=== PATIENT | female | born 1980 | race Hispanic/Latino ===

== ENCOUNTER 2019-12-20 11:09 | Inpatient (IN) | payer SELFPAY ==
[2019-12-20 11:41] LABS: Absolute Lymphocytes (CBC) 1.9 K/uL (0.7-4.9); Basophils % 0.7 % (0-1.3); Hematocrit 34.6 % (36.0-45.0); Lymphocytes % 22.6 % (15.3-44.8); MPV 10.5 fL (7.6-11.3); RBC Red Blood Cell Count 3.93 M/uL (3.86-4.86)
[2019-12-20 11:42] LABS: Protime INR 0.84
--- NOTE | 2019-12-20 11:55 | RAD REPORT ---
EXAM DESCRIPTION: CT - Head Brain Wo Cont - 12/20/2019 11:39 am CLINICAL HISTORY: Headache COMPARISON: None. TECHNIQUE: Computed axial tomography of the head was obtained. IV contrast was not requested. All CT scans are performed using dose optimization technique as appropriate and may include automated exposure control or mA/KV adjustment according to patient size. FINDINGS: An intracranial bleed is not seen . The ventricles are normal in caliber. No extra-axial fluid collection is noted. Fluid within the sinuses/ mastoids is not seen. IMPRESSION: No acute intracranial abnormality is seen. If patient's symptoms persist MRI of the bra in would be recommended.
[2019-12-20 11:58] LABS: ALT/SGPT 14 U/L (12-78); AST/SGOT 16 U/L (15-37); Albumin 1.5 g/dL (3.4-5.0); Alkaline Phosphatase 102 U/L (45-117); BUN Blood Urea Nitrogen 17 mg/dL (7-18); Bicarbonate 27 mmol/L (21-32); Bilirubin Direct < 0.1 mg/dL (0-0.2); Bilirubin Total 0.2 mg/dL (0.2-1.0); Glucose Level 227 mg/dL (74-106); Magnesium 2.2 mg/dL (1.8-2.4); NT PRO-BNP 4006 pg/mL (<125); Potassium 4.6 mmol/L (3.5-5.1); Protein, Total 6.1 g/dL (6.4-8.2); Sodium Level 137 mmol/L (136-145); Troponin (Emerg Dept Use Only) 0.02 ng/mL (0.0-0.045)
--- NOTE | 2019-12-20 12:21 | ER ---
Nurse's Notes [facility] Name: Garima Shea Age: 39 yrs Sex: Female : 1980 Arrival Date: 12/20/2019 Time: 11:11 Bed 2 Private MD: Diagnosis: Hypertensive heart disease with heart failure;Unspecified combined systolic (congestive) and diastolic (congestive) heart failure;Sanders's palsy Presentation: 12/19 11:15 Initial Sepsis Screen: Does the patient have a suspected source of infection? No. rb1 Patient's initial sepsis screen is negative. 11:18 Chief complaint: Patient states: Facial droop, HAIDER, and HTN since Thursday. Bilateral ll1 leg swelling noted, Reports dyspnea at times. No fever or cough. Sent by PCP for further eval. Coronavirus screen: Client denies travel out of the [place] in the last 14 days. At this time, the client does not indicate any symptoms associated with coronavirus-19. Ebola Screen: Patient denies travel to an Ebola-affected area in the 21 days before illness onset. Initial Sepsis Screen: Does the patient meet any 2 criteria? HR > 90 bpm. Risk Assessment: Do you want to hurt yourself or someone else? Patient reports no desire to harm self or others. Onset of symptoms was December 24, 2019. 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 - Social history:: Smoking status: Patient denies any tobacco usage or history of. Screenin:34 Abuse screen: Denies threats or abuse. Nutritional screening: No deficits noted. tw2 Tuberculosis screening: No symptoms or risk factors identified. Fall Risk None identified. Assessment: 11:15 General: Appears in no apparent distress. comfortable, Behavior is calm, cooperative. rb1 General: Pt. reports that she went to see her doctor last Thursday and was put on Hydralazine for her blood pressure, but the medicine made her feel funny so she quit taking it.. Pain: Denies pain. Neuro: Level of Consciousness is awake, alert, obeys commands, Oriented to person, place, time, situation, Reports dizziness, headache weakness since x 1 week. 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 Gait is steady, Speech is normal, Facial droop on left, Pt. reports that she has had the left sided facial droop since last Thursday.. Pupils are PERRLA. Cardiovascular: Capillary refill < 3 seconds Patient's skin is warm and dry. Respiratory: Airway is patent Respiratory effort is even, unlabored, Respiratory pattern is regular, symmetrical, Denies cough, shortness of breath. GI: No signs and/or symptoms were reported involving the gastrointestinal system. : No signs and/or symptoms were reported regarding the genitourinary system. Musculoskeletal: Swelling present in right leg and left leg Swelling in bilateral legs started two weeks ago. 12:15 Reassessment: Patient appears in no apparent distress at this time. No changes from rb1 previously documented assessment. 12:53 Reassessment: Dr. Florentino Holt at the pt bedside. Received verbal order to hold the rb1 Lasix at this time and reassess in an hour. 100% read back. 13:15 Reassessment: Patient appears in no apparent distress at this time. Patient and/or rb1 family updated on plan of care and expected duration. Pain level reassessed. Patient is alert, oriented x 3, equal unlabored respirations, skin warm/dry/pink. Patient denies pain at this time. 14:45 Reassessment: pt transported to MRI at this time. tw2 15:14 Reassessment: Patient appears in no apparent distress at this time. No changes from tw2 previously documented assessment. Patient and/or family updated on plan of care and expected duration. Pain level reassessed. Patient is alert, oriented x 3, equal unlabored respirations, skin warm/dry/pink. pt back from MRI at this time. NAD. 16:09 Reassessment: Unable to give report at this time, was told the room has not been rb1 assigned yet. 16:11 Reassessment: Patient appears in no apparent distress at this time. Patient and/or rb1 family updated on plan of care and expected duration. Pain level reassessed. Patient is alert, oriented x 3, equal unlabored respirations, skin warm/dry/pink. 16:35 Reassessment: Gave report to ISABEL Grant. Information from the [facility] was given. All rb1 questions asked and answered. 17:10 Reassessment: Patient appears in no apparent distress at this time. No changes from rb1 previously documented assessment. Vital Signs: 11:18 BP 210 / 113; Pulse 101; Resp 18; Temp 98.0; Pulse Ox 100% ; Pain 6/10; ll1 11:34 BP 197 / 98; Pulse 97; Resp 17; Pulse Ox 100% on R/A; tw2 11:40 Weight 58.51 kg; Height 5 ft. 2 in. (157.48 cm); rb1 12:15 BP 200 / 112; Pulse 106; Resp 11; Pulse Ox 100% ; rb1 12:41 BP 166 / 89; Pulse 104; Resp 13; Pulse Ox 100% ; rb1 12:54 BP 154 / 81; Pulse 103; Resp 12; Pulse Ox 100% on R/A; rb1 13:15 BP 130 / 89; Pulse 109; Resp 16; Pulse Ox 100% on R/A; tw2 14:15 BP 138 / 72; Pulse 104; Resp 13; Pulse Ox 100% ; rb1 15:23 BP 148 / 77; Pulse 110; Resp 16; Pulse Ox 100% on R/A; tw2 16:10 BP 141 / 74; Pulse 102; Resp 17; Temp 98.2; Pulse Ox 99% ; Pain 0/10; rb1 17:00 BP 143 / 76; Pulse 96; Resp 16; Pulse Ox 100% ; Pain 0/10; rb1 11:40 Body Mass Index 23.59 (58.51 kg, 157.48 cm) rb1 NIH Stroke Scale Scores: 11:40 NIHSS Score: 2 cp ED Course: 11:11 Patient arrived in ED. ag5 11:11 Placed in gown. Bed in low position. Call light in reach. quality assurance monitor final on. Pulse ox tw2 on. NIBP on. 11:13 Tami Cole, ISABEL is Primary Nurse. rb1 11:14 Jj Gonzalez PA is PHCP. cp 11:14 Jj Gleason MD is Attending Physician. cp 11:20 Triage completed. ll1 11:21 Arm band placed on Patient placed in an exam room, on a stretcher. ll1 11:30 Inserted saline lock: 20 gauge in left antecubital area, using aseptic technique. Blood rb1 collected. 11:40 CT Head Brain wo Cont In Process Unspecified. EDMS 12:06 XRAY Chest (1 view) In Process Unspecified. EDMS 12:19 Florentino Holt MD is Hospitalizing Provider. cp 17:10 No provider procedures requiring assistance completed. Patient admitted, IV remains in rb1 place. Administered Medications: 12:19 Drug: HydrALAZINE 50 mg Route: PO; rb1 12:45 Follow up: Response: No adverse reaction; Blood pressure is lowered rb1 12:19 Drug: hydrALAZINE 10 mg Route: IV; Rate: calculated rate; Site: left antecubital; rb1 12:45 Follow up: Response: No adverse reaction rb1 12:45 Follow up: IV Status: Completed infusion rb1 12:19 Drug: Aspirin Chewable Tablet 324 mg Route: PO; rb1 13:00 Follow up: Response: No adverse reaction rb1 16:02 Not Given (BP decreased; Received verbal order to hold and reassess to see if BP rb1 increases. He doesn't want to drop her pressure too quickly): Lasix 20 mg IVP once Outcome: 12:20 Decision to Hospitalize by Provider. cp 17:10 Admitted to Med/surg accompanied by [facility], via stretcher, room 205, with chart, Report rb1 called to ISABEL Grant 17:10 Condition: stable 17:10 Instructed on the need for admit. 17:25 Patient left the ED. rb1 NIH Stroke Scale - NIH Stroke Score Date: 12/20/2019 Time: 11:40 Total Score = 2 1a. Level of Consciousness (LOC) - 0(Alert) 1b. Level of Consciousness (LOC) (Year \T\ Age) - 0(Both) 1c. LOC Commands (Open \T\ Closes Eyes/Dividend Deposit Voucher Clerk) - 0(Both) 2. Best Gaze (Lateral Gaze Paresis) - 0(Normal) 3. Visual Field Loss - 0(No visual loss) 4. Facial Palsy - 2(Partial paralysis) 5a. Left Arm: Motor (10-second hold) - 0(No drift) 5b. Right Arm: Motor (10-second hold) - 0(No drift) 6a. Left Leg: Motor (5-second hold - always test supine) - 0(No drift) 6b. Right Leg: Motor (5-second hold - always test supine) - 0(No drift) 7. Limb Ataxia (finger/nose \T\ heel/horowitz - test with eyes open) - 0(Absent) 8. Sensory Loss (pinprick arms/legs/face) - 0(Normal) 9. Best Language: Aphasia (description/naming/reading) - 0(No aphasia) 10. Dysarthria (speech clarity - read or repeat words) - 0(Normal) 11. Extinction and Inattention (visual/tactile/auditory/spatial/personal) - 0(No abnormality) Initials: cp Signatures: Dispatcher [employer] EDMS Jj Gonzalez PA PA cp Tami Cole RN RN rb1 Mallory Cooley RN RN tw2 Cheryl Barber 5 Veronika Lyle RN RN ll1 Corrections: (The following items were deleted from the chart) 12:55 12:53 Reassessment: Dr. Florentino Holt at the pt bedside. rb1 rb1
--- NOTE | 2019-12-20 12:21 | EDPHYS ---
Physician Documentation [facility] Name: Garima Shea Age: 39 yrs Sex: Female : 1980 Arrival Date: 12/20/2019 Time: 11:11 Bed 2 Private MD: KARO Physician Jj Gleason HPI: 12/19 11:30 This 39 yrs old Female presents to ER via Ambulatory with complaints of High cp Blood Pressure. 11:30 The patient's problem is reported as a facial droop, on left, left side headache. cp 11:30 Onset: The symptoms/episode began/occurred 6 day(s) ago. Duration: The episode is cp continuous. Associated signs and symptoms: Pertinent positives: swelling of lower extremities for past several weeks, Pertinent negatives: abdominal pain, chest pain, numbness, palpitations, seizure, vomiting, weakness. Patient's baseline: Neuro: alert and fully oriented, Motor: no deficits, Ambulation: walks without assistance, Speech: normal. Patient reports blood pressure has been elevated. History of HTN. Patient admits to not taking prescribed hydralazine due to medication causing dizziness. 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 - Social history:: Smoking status: Patient denies any tobacco usage or history of. ROS: 11:35 Constitutional: Negative for body aches, chills, fever, poor PO intake. cp 11:35 Eyes: Negative for injury, pain, redness, and discharge. cp 11:35 ENT: Negative for ear pain, sore throat, difficulty swallowing, difficulty handling cp secretions. 11:35 Cardiovascular: Positive for edema, Negative for chest pain, palpitations. 11:35 Respiratory: Positive for shortness of breath, on exertion. Negative for cough, wheezing. 11:35 Abdomen/GI: Negative for abdominal pain, nausea, vomiting, and diarrhea, black/tarry stool, rectal bleeding. 11:35 Back: Negative for pain at rest, pain with movement, radiated pain. 11:35 Skin: Negative for rash. 11:35 Neuro: Positive for headache, Negative for altered mental status, gait disturbance, numbness, syncope, acute changes. 11:35 All other systems are negative. Exam: 11:40 Constitutional: The patient appears in no acute distress, alert, awake, cp non-diaphoretic, non-toxic, well developed, well nourished. 11:40 Head/face: Noted is left side facial droop with loss of forehead wrinkling. cp 11:40 Eyes: Periorbital structures: appear normal, Pupils: equal, round, and reactive to cp light and accomodation, Extraocular movements: intact throughout, Conjunctiva: normal, no exudate, no injection, Sclera: no appreciated abnormality, Lids and lashes: appear normal, bilaterally. 11:40 ENT: External ear(s): are unremarkable, Ear canal(s): are normal, clear, TM's: dullness, bilaterally, Nose: is normal, Mouth: Lips: moist, Oral mucosa: pink and intact, moist, Posterior pharynx: Airway: no evidence of obstruction, patent. 11:40 Neck: ROM/movement: is normal, is supple, without pain, no range of motions limitations.cp 11:40 Chest/axilla: Inspection: normal, Palpation: is normal, no crepitus, no tenderness. 11:40 Cardiovascular: Rate: tachycardic, Rhythm: regular, Edema: ankle edema, that is moderate, JVD: is not appreciated. 11:40 Respiratory: the patient does not display signs of respiratory distress, Respirations: normal, no use of accessory muscles, no retractions, labored breathing, is not present, Breath sounds: are clear throughout, no decreased breath sounds, no stridor, no wheezing. 11:40 Abdomen/GI: Inspection: abdomen appears normal, Palpation: abdomen is soft and non-tender, in all quadrants. 11:40 Back: pain, is absent, ROM is normal. 11:40 Skin: no rash present. 11:40 Neuro: Orientation: to person, place \T\ time. Mentation: is normal, Cerebellar function: Romberg testing is negative, normal finger to nose testing, heel to horowitz testing is normal, Motor: moves all fours, strength is normal, Sensation: no obvious gross deficits. 12:05 Radiologist reports: no acute findings cp 12:08 ECG was reviewed by the Attending Physician. cp Vital Signs: 11:18 BP 210 / 113; Pulse 101; Resp 18; Temp 98.0; Pulse Ox 100% ; Pain 6/10; ll1 11:34 BP 197 / 98; Pulse 97; Resp 17; Pulse Ox 100% on R/A; tw2 11:40 Weight 58.51 kg; Height 5 ft. 2 in. (157.48 cm); rb1 12:15 BP 200 / 112; Pulse 106; Resp 11; Pulse Ox 100% ; rb1 12:41 BP 166 / 89; Pulse 104; Resp 13; Pulse Ox 100% ; rb1 12:54 BP 154 / 81; Pulse 103; Resp 12; Pulse Ox 100% on R/A; rb1 13:15 BP 130 / 89; Pulse 109; Resp 16; Pulse Ox 100% on R/A; tw2 14:15 BP 138 / 72; Pulse 104; Resp 13; Pulse Ox 100% ; rb1 15:23 BP 148 / 77; Pulse 110; Resp 16; Pulse Ox 100% on R/A; tw2 16:10 BP 141 / 74; Pulse 102; Resp 17; Temp 98.2; Pulse Ox 99% ; Pain 0/10; rb1 17:00 BP 143 / 76; Pulse 96; Resp 16; Pulse Ox 100% ; Pain 0/10; rb1 11:40 Body Mass Index 23.59 (58.51 kg, 157.48 cm) rb1 NIH Stroke Scale Scores: 11:40 NIHSS Score: 2 cp MDM: 11:21 Patient medically screened. jesse 11:30 Differential diagnosis: CVA, metabolic disorder, drug effects, Sanders's Palsy, CHF, cp cardiac arrythmia, DVT, HTN crisis, intracerebral bleed. 12:20 Physician consultation: Florentino Holt MD was called at 12:20, was contacted at 12:20, cp regarding admission, to the telemetry unit. patient's condition, and will see patient in ED, shortly. 12:30 Data reviewed: vital signs, nurses notes, lab test result(s), EKG, radiologic studies, cp CT scan, plain films, I have discussed the patient's presentation/case with the attending Emergency Department Physician; and as a result, I will admit patient. 12:30 Test interpretation: by ED physician or midlevel provider: ECG. Counseling: I had a cp detailed discussion with the patient and/or guardian regarding: the historical points, exam findings, and any diagnostic results supporting the discharge/admit diagnosis, the presence of at least one elevated blood pressure reading (>120/80) during this emergency department visit, lab results, radiology results, the need for further work-up and treatment in the hospital. Response to treatment: the patient's symptoms have mildly improved after treatment. 12/19 11:25 Order name: Basic Metabolic Panel; Complete Time: 12:00 12/19 12:01 Interpretation: Normal except: GLUC 227; GFR 58; CA 8.0. 12/19 11:25 Order name: CBC with Diff; Complete Time: 11:46 12/19 11:46 Interpretation: Normal except: HGB 11.7; HCT 34.6. 12/19 11:25 Order name: LFT's; Complete Time: 12:00 12/19 12:12 Interpretation: Normal except: TP 6.1; ALB 1.5; GLOB 4.6; A/G 0.3. 12/19 11:25 Order name: Magnesium; Complete Time: 12:00 12/19 11:25 Order name: NT PRO-BNP; Complete Time: 12:00 12/19 12:12 Interpretation: Abnormal: NT PRO-BNP 4006. 12/19 11:25 Order name: PT-INR; Complete Time: 11:46 12/19 11:25 Order name: Troponin (emerg Dept Use Only); Complete Time: 12:00 12/19 12:13 Interpretation: TROPED 0.02; Reviewed. 12/19 11:25 Order name: XRAY Chest (1 view); Complete Time: 12:30 12/19 12:30 Interpretation: Report review. 12/19 11:25 Order name: CT Head Brain wo Cont; Complete Time: 12:00 12/19 12:00 Interpretation: Report reviewed. 12/19 12:52 Order name: MRI - Brain Wo Cont 12/19 14:56 Order name: Urine Dipstick--Ancillary (enter results) ss 12/19 14:56 Order name: Urine --Ancillary (enter results) 12/19 15:05 Order name: Urine --Ancillary; Complete Time: 15:53 EDMS 12/19 15:05 Order name: Urine Dipstick-Ancillary; Complete Time: 15:53 EDMS 12/19 15:53 Interpretation: Normal except: UGLUC 2+; UBLD TRACE; UPH 7.5; UPROT 3+. cp 12/19 11:25 Order name: EKG; Complete Time: 11:25 cp 12/19 11:25 Order name: Cardiac monitoring; Complete Time: 11:34 cp 12/19 11:25 Order name: EKG - Nurse/Tech; Complete Time: 12:08 cp 12/19 11:25 Order name: IV Saline Lock; Complete Time: 11:33 cp 12/19 11:25 Order name: Labs collected and sent; Complete Time: 11:33 cp 12/19 11:25 Order name: O2 Per Protocol; Complete Time: 11:33 cp 12/19 11:25 Order name: O2 Sat Monitoring; Complete Time: 11:33 cp 12/19 11:25 Order name: Urine Dipstick-Ancillary (obtain specimen); Complete Time: 14:54 cp 12/19 11:25 Order name: Urine Test (obtain specimen); Complete Time: 14:54 cp 12/19 13:16 Order name: CONS Physician Consult EDMS 12/19 15:49 Order name: MRI; Complete Time: 15:53 EDMS EC:08 Rate is 98 beats/min. Rhythm is regular. WI interval is normal. QRS interval is normal. cp QT interval is normal. Interpreted by me. Reviewed by me. Administered Medications: 12:19 Drug: HydrALAZINE 50 mg Route: PO; rb1 12:45 Follow up: Response: No adverse reaction; Blood pressure is lowered rb1 12:19 Drug: hydrALAZINE 10 mg Route: IV; Rate: calculated rate; Site: left antecubital; rb1 12:45 Follow up: Response: No adverse reaction rb1 12:45 Follow up: IV Status: Completed infusion rb1 12:19 Drug: Aspirin Chewable Tablet 324 mg Route: PO; rb1 13:00 Follow up: Response: No adverse reaction rb1 16:02 Not Given (BP decreased; Received verbal order to hold and reassess to see if BP rb1 increases. He doesn't want to drop her pressure too quickly): Lasix 20 mg IVP once Disposition: 13:00 Chart complete. cp 12/20 04:37 Co-signature as Attending Physician, Jj Gleason MD I agree with the assessment and [facility] plan of care. Disposition: 12/20/19 12:20 Hospitalization ordered by Florentino Holt for Inpatient Admission. Preliminary diagnosis are Hypertensive heart disease with heart failure, Unspecified combined systolic (congestive) and diastolic (congestive) heart failure, Sanders's palsy. - Bed requested for Telemetry/MedSurg (Inpatient). - Status is Inpatient Admission. rb1 - Condition is Stable. - Problem is new. - Symptoms have improved. NIH Stroke Scale - NIH Stroke Score Date: 12/20/2019 Time: 11:40 Total Score = 2 1a. Level of Consciousness (LOC) - 0(Alert) 1b. Level of Consciousness (LOC) (Year \T\ Age) - 0(Both) 1c. LOC Commands (Open \T\ Closes Eyes/Parachutist/Combatant Diver Qualified) - 0(Both) 2. Best Gaze (Lateral Gaze Paresis) - 0(Normal) 3. Visual Field Loss - 0(No visual loss) 4. Facial Palsy - 2(Partial paralysis) 5a. Left Arm: Motor (10-second hold) - 0(No drift) 5b. Right Arm: Motor (10-second hold) - 0(No drift) 6a. Left Leg: Motor (5-second hold - always test supine) - 0(No drift) 6b. Right Leg: Motor (5-second hold - always test supine) - 0(No drift) 7. Limb Ataxia (finger/nose \T\ heel/horowitz - test with eyes open) - 0(Absent) 8. Sensory Loss (pinprick arms/legs/face) - 0(Normal) 9. Best Language: Aphasia (description/naming/reading) - 0(No aphasia) 10. Dysarthria (speech clarity - read or repeat words) - 0(Normal) 11. Extinction and Inattention (visual/tactile/auditory/spatial/personal) - 0(No abnormality) Initials: cp Signatures: Dispatcher [employer] EDNidhi Olivas Corey, MD MD cha Page Jj, PA PA cp Tami Cole, RN RN rb1 Veronika Lyle RN RN ll1 Corrections: (The following items were deleted from the chart) 12/19 12:01 12:00 Normal except: GLUC 227; GFR 58. cp cp 15:19 12:20 Hospitalization Ordered by Florentino Holt MD for Inpatient Admission. cp Preliminary diagnosis is Hypertensive heart disease with heart failure; Unspecified combined systolic (congestive) and diastolic (congestive) heart failure; Sanders's palsy. Bed requested for Telemetry/MedSurg (Inpatient). Status is Inpatient Admission. Condition is Stable. Problem is new. Symptoms have improved. cp 15:55 15:19 12/20/2019 12:20 Hospitalization Ordered by Florentino Holt MD for cp Inpatient Admission. Preliminary diagnosis is Hypertensive heart disease with heart failure; Unspecified combined systolic (congestive) and diastolic (congestive) heart failure; Left Facial Droop. Bed requested for Telemetry/MedSurg (Inpatient). Status is Inpatient Admission. Condition is Stable. Problem is new. Symptoms have improved. cp 16:06 15:55 12/20/2019 12:20 Hospitalization Ordered by Florentino Holt MD for bd Inpatient Admission. Preliminary diagnosis is Hypertensive heart disease with heart failure; Unspecified combined systolic (congestive) and diastolic (congestive) heart failure; Sanders's palsy. Bed requested for Telemetry/MedSurg (Inpatient). Status is Inpatient Admission. Condition is Stable. Problem is new. Symptoms have improved. cp 17:25 16:06 12/20/2019 12:20 Hospitalization Ordered by Florentino Holt MD for rb1 Inpatient Admission. Preliminary diagnosis is Hypertensive heart disease with heart failure; Unspecified combined systolic (congestive) and diastolic (congestive) heart failure; Sanders's palsy. Bed requested for Telemetry/MedSurg (Inpatient). Status is Inpatient Admission. Condition is Stable. Problem is new. Symptoms have improved. bd 12/20 12:58 12/19 11:40 Head/face: Noted is cp cp
[2019-12-20] MEDS ORDERED: HYDRALAZINE HCL 20 MG/ML VIAL ONE (12:22)
[2019-12-20] MEDS ORDERED: ASPIRIN 81 MG CHEWABLE TABLET ONE (12:22)
[2019-12-20] MEDS ORDERED: HYDRALAZINE HCL 10 MG TABLET ONE (12:23)
--- NOTE | 2019-12-20 12:27 | RAD REPORT ---
EXAM DESCRIPTION: Zarina Single View12/20/2019 12:05 pm CLINICAL HISTORY: Chest swelling COMPARISON: none FINDINGS: The lungs appear clear of acute infiltrate. The heart is normal size IMPRESSION: No acute abnormalities displayed
--- NOTE | 2019-12-20 13:21 | P.HP ---
Patient History Date of Service: 12/20/19 Reason for admission: Acute CHF exacerbation, L Facial Droop, HTN emergency History of Present Illness: 39-year-old female presents to the ED due to several days of elevated blood pressure, shortness of breath with exertion, bilateral leg swelling, and left- sided facial droop. Patient states she recently changed PCPs in her blood pressure medications were changed. She says last week she was started on 100 mg hydralazine. She took a few days of this and then stopped due to it making her feel dizzy. She was also having about 2 weeks of progressively worsening lower extremity edema. She attributed her hydralazine to some abdominal swelling as well. She reports that she 1st noticed her left-sided facial droop 6 days ago, there has been no change since she 1st noticed. Reports no other numbness, weakness, change in vision or hearing. PMH: HTN, DM 2, HLD In the ED, lab work was notable for elevated BNP (4006), CT head: No acute intracranial abnormality. Blood pressure was noted to be 210/113. Allergies No Known Allergies Allergy (Verified 12/20/19 17:39) Home medications list reviewed: Yes Home Medications: Atorvastatin Calcium 20 mg PO DAILY 12/20/19 Furosemide [Lasix] 40 mg PO DAILY 12/20/19 Glipizide [Glipizide ER] 5 mg PO ACHS 12/20/19 Hydralazine HCl [Apresoline] 1,000 mg PO DAILY 12/20/19 Lisinopril [Zestril] 40 mg PO DAILY 12/20/19 Metformin HCl 1,000 mg PO DAILY 12/20/19 - Past Medical/Surgical History Diabetic: Yes -: HTN -: DM2 -: HLD Past Surgical History: Patient denies surgical history - Family History Father -: Heart disease, Diabetes Mother -: Hypertension - Social History Smoking Status: Never smoker Alcohol use: No CD- Drugs: No Review of Systems 10-point ROS is otherwise unremarkable Physical Examination - Physical Exam General: Alert, In no apparent distress HEENT: Other (left facial droop) Neck: Supple, No LAD Respiratory: Clear to auscultation bilaterally, Diminished (slightly at bases) Cardiovascular: Regular rate/rhythm, Normal S1 S2, Edema (2+ to thighs) Gastrointestinal: Soft and benign, Non-distended, No tenderness Musculoskeletal: No tenderness Neurological: Normal strength at 5/5 x4 extr, Normal affect, Other (left sided facial droop) - Studies Laboratory Data (last 24 hrs) 12/20/19 11:30: PT 9.9, INR 0.84 12/20/19 11:30: WBC 8.4, Hgb 11.7 L, Hct 34.6 L, Plt Count 307 12/20/19 11:30: Sodium 137, Potassium 4.6, BUN 17, Creatinine 1.07, Glucose 227 H, Magnesium 2.2, Total Bilirubin 0.2, AST 16, ALT 14, Alkaline Phosphatase 102 Assessment and Plan - Advance Directives Does patient have a Living Will: No Does patient have a Durable POA for Healthcare: No Physician Review Additional Text: Acute CHF exacerbation HTN with questionable hypertensive emergency versus urgency Left-sided facial droop DM2 Acute CHF exacerbation -patient reports no diagnosis of CHF, and no prior echocardiogram -after further discussion, she does state her PCP has been treating her with Lasix for lower extremity swelling -her swelling has progressively worsened despite taking her home 40 mg PO Lasix b.i.d. for the past ~1 week -TTE ordered -cardiology consulted given new onset CHF -Lasix 40 mg IV b.i.d. -patient breathing comfortably at rest on room air HTN with questionable hypertensive emergency versus urgency Left-sided facial droop -unclear of left-sided facial droop as result of her persistently elevated blood pressure -hydralazine given in the ED, the patient's blood pressure came down 150/70 -do not want to lower her BP too quickly -facial droop maybe Sanders's palsy, no other weakness -aspirin 81mg -MRI ordered -neurology consulted DM2 -insulin sliding scale, can continue home meds once obtained Dispo: anticipate dc home in next 24-48 hrs pending further evaluation Time Spent Managing Pts Care (In Minutes): 57
[2019-12-20 15:05] LABS: Urine Blood TRACE (NEG); Urine Glucose 2+ (NEG); Urine Protein 3+ (NEG); Urine pH 7.5 (5.0-7.0)
--- NOTE | 2019-12-20 15:47 | RAD REPORT ---
EXAM DESCRIPTION: MRI - Brain Wo Cont - 12/20/2019 3:09 pm CLINICAL HISTORY: left side facial droop COMPARISON: Head Brain Wo Cont dated 12/20/2019 TECHNIQUE: Sagittal T1-weighted images were obtained along with axial PD, heavily T2-weighted and T2 -FLAIR images. Axial DWI and ADC mapping sequences were also obtained along with coronal heavily T2-w eighted images. FINDINGS: No intracranial hemorrhage, mass or acute infarction. There is no edema or shift of midlin e structures. No extra-axial fluid collections. Solis-matter/white matter junction is preserved. Signa l voids are seen as a normal finding in the major intracranial vessels. No atrophy or chronic ischemi c change. No vascular malformation or other focal process seen. No sella or supra sella abnormality. Globes and orbital contents show no suspicious findings. Mastoid air cells and paranasal sinuses are clear. IMPRESSION: Negative non-contrast MRI of the Brain.
[2019-12-20] MEDS: INSULIN -REGULAR HUMAN 50 UNIT/0.5 ML ML SQ SCH ×2 (17:30→20:14)
[2019-12-20] MEDS: ASPIRIN EC 81 MG TAB PO SCH (17:55)
[2019-12-20] MEDS: FUROSEMIDE 40 MG/4 ML VIAL IV SCH (18:07)
[2019-12-20 19:29] VITALS: BMI 23.6
[2019-12-20] MEDS ORDERED: TRAMADOL HCL 50 MG TAB PO PRN (20:59)
[2019-12-20] MEDS ORDERED: HYDROCODONE/APAP 7.5/325 MG TAB PO PRN (20:59)
[2019-12-21 06:05] LABS: Absolute Lymphocytes (CBC) 1.9 K/uL (0.7-4.9); Hematocrit 30.3 % (36.0-45.0); Lymphocytes % 26.6 % (15.3-44.8); MPV 10.4 fL (7.6-11.3); RBC Red Blood Cell Count 3.44 M/uL (3.86-4.86)
[2019-12-21 06:43] LABS: Albumin 1.3 g/dL (3.4-5.0); Bilirubin Total 0.1 mg/dL (0.2-1.0); Magnesium 2.1 mg/dL (1.8-2.4); Phosphorus 3.7 mg/dL (2.5-4.9); Potassium 4.2 mmol/L (3.5-5.1); Protein, Total 5.2 g/dL (6.4-8.2)
[2019-12-21] MEDS ORDERED: GLIPIZIDE S.A. 5 MG TAB PO SCH (07:30)
[2019-12-21] MEDS: INSULIN -REGULAR HUMAN 50 UNIT/0.5 ML ML SQ SCH ×4 (07:30→21:00)
[2019-12-21] MEDS ORDERED: METFORMIN ER 500 MG TAB PO SCH (08:00)
[2019-12-21] MEDS: FUROSEMIDE 40 MG/4 ML VIAL IV SCH ×2 (08:13→16:26)
[2019-12-21] MEDS: METFORMIN HCL 500 MG TAB PO SCH ×2 (08:14→16:27)
[2019-12-21] MEDS: ATORVASTATIN 20 MG TAB PO SCH (08:14)
[2019-12-21] MEDS: lisinopriL 20 MG TAB PO SCH (08:14)
[2019-12-21] MEDS: ASPIRIN EC 81 MG TAB PO SCH (08:14)
[2019-12-21] MEDS: glipiZIDE 5 MG TAB PO SCH (08:14)
[2019-12-21] MEDS ORDERED: HYDRALAZINE HCL 25 MG TABLET PO SCH ×2 (09:00)
[2019-12-21] MEDS: METOPROLOL XL 50 MG TAB PO SCH ×2 (10:17→18:24)
[2019-12-21] MEDS: hydroCHLOROthiazide 12.5 MG CAP PO SCH (10:18)
--- NOTE | 2019-12-21 13:57 | P.PN ---
Subjective Date of Service: 12/21/19 Chief Complaint: Acute CHF exacerbation, L Facial Droop, HTN emergency Subjective: Improving (breathing comfortably on room air, feels swelling of lower legs has decreased a little bit. Does report headache yesterday/overnight when they gave her hydralazine) Review of Systems 10-point ROS is otherwise unremarkable Physical Examination - Vital Signs Temperature: 98.0 F Blood Pressure: 123/66 Pulse: 108 Respirations: 19 Pulse Ox (%): 96 - Physical Exam General: Alert, In no apparent distress HEENT: Other (Left facial droop) Neck: Supple Respiratory: Clear to auscultation bilaterally, Normal air movement Cardiovascular: Regular rate/rhythm, Normal S1 S2, Edema (2+ bilaterally up to the thighs) Gastrointestinal: Soft and benign, Non-distended, No tenderness Musculoskeletal: No erythema, No tenderness Neurological: Normal affect Assessment & Plan Physician Review Additional Text: Acute CHF exacerbation HTN with questionable hypertensive emergency versus urgency Left-sided facial droop DM2 Acute CHF exacerbation -patient reports no diagnosis of CHF, and no prior echocardiogram -her swelling has progressively worsened despite taking her home 40 mg PO Lasix b.i.d. for the past ~1 week -TTE ordered -cardiology consulted given new onset CHF, likely secondary to uncontrolled hypertension -Lasix 40 mg IV b.i.d. -diuresing well, swelling is coming down HTN with questionable hypertensive emergency versus urgency Left-sided facial droop -unclear of left-sided facial droop as result of her persistently elevated blood pressure -hydralazine given in the ED, the patient's blood pressure came down 150/70 -facial droop maybe Sanders's palsy, no other weakness -aspirin 81mg -MRI negative -neurology consulted -discontinue hydralazine, start metoprolol 50 mg b.i.d., hydrochlorothiazide 12.5 mg daily DM2 -insulin sliding scale, can continue home meds once obtained Dispo: anticipate dc home in next 24-48 hrs pending further evaluation Time Spent Managing Pts Care (In Minutes): 35
--- NOTE | 2019-12-21 14:32 | ECHO ---
HEIGHT: 5 ft 2 in WEIGHT: 127 lb 12.8 oz DATE OF STUDY: 12/21/[address]: Florentino Holt MD 2-DIMENSIONAL: YES M.MODE: YES DOPPLER: YES COLOR FLOW: YES TDS: NO PORTABLE: NO DEFINITY: NO BUBBLE STUDY: NO DIAGNOSIS: CONGESTIVE HEART FAILURE CARDIAC HISTORY: CATHERIZATION: NO SURGERY: NO PROSTHETIC VALVE: NO PACEMAKER: NO MEASUREMENTS (cm) DIASTOLIC (NORMALS) SYSTOLIC (NORMALS) IVSd 1.2 (0.6-1.2) LA Diam 3.3 (1.9-4.0) LVEF 57% LVIDd 4.0 (3.5-5.7) LVIDs 2.9 (2.0-3.5) %FS 29% LVPWd 1.2 (0.6-1.2) Ao Diam 2.8 (2.0-3.7) 2 DIMENSIONAL ASSESSMENT: RIGHT ATRIUM: NORMAL LEFT ATRIUM: NORMAL RIGHT VENTRICLE: NORMAL LEFT VENTRICLE: NORMAL TRICUSPID VALVE: NORMAL MITRAL VALVE: NORMAL PULMONIC VALVE: NORMAL AORTIC VALVE: NORMAL PERICARDIAL EFFUSION: NONE AORTIC ROOT: NORMAL LEFT VENTRICULAR WALL MOTION: NORMAL EJECTION FRACTION. DOPPLER/COLOR FLOW: NORMAL. COMMENTS: NORMAL LEFT VENTRICULAR SIZE. NORMAL EJECTION FRACTION. MILD DIASTOLIC DYSFUNCTION. NO EFFUSION. TECHNOLOGIST: PRICILA LINDER
[2019-12-22] MEDS: METOPROLOL XL 50 MG TAB PO SCH (05:57)
[2019-12-22 06:07] VITALS: O2SAT 98
[2019-12-22 06:28] LABS: Albumin 1.3 g/dL (3.4-5.0); Bilirubin Total 0.2 mg/dL (0.2-1.0); Magnesium 2.2 mg/dL (1.8-2.4); Potassium 4.1 mmol/L (3.5-5.1)
[2019-12-22] MEDS: INSULIN -REGULAR HUMAN 50 UNIT/0.5 ML ML SQ SCH ×2 (07:30→11:30)
[2019-12-22] MEDS: ATORVASTATIN 20 MG TAB PO SCH (08:10)
[2019-12-22] MEDS: lisinopriL 20 MG TAB PO SCH (08:10)
[2019-12-22] MEDS: ASPIRIN EC 81 MG TAB PO SCH (08:10)
[2019-12-22] MEDS: hydroCHLOROthiazide 12.5 MG CAP PO SCH (08:10)
[2019-12-22] MEDS: glipiZIDE 5 MG TAB PO SCH (08:11)
[2019-12-22] MEDS: FUROSEMIDE 40 MG/4 ML VIAL IV SCH (08:11)
[2019-12-22] MEDS: METFORMIN HCL 500 MG TAB PO SCH (08:11)
--- NOTE | 2019-12-22 12:21 | CON ---
Date of Consultation: 12/21/2019 The patient is a 39-year-old woman, who was admitted to Dr. Holt on 12/20/2019. I saw the patient o n 12/21/2019. Reason For Consultation: Hypertensive crisis. History Of Present Illness: Ms. Salazar is a 39-year-old. Has had a history of dyslipidemia, hype rtension, and diabetes. Has been noncompliant with her medications. Came in with a blood pressure o f 210/113. She came in with facial numbness. CT of her head and her brain MRIs were negative. Her chest x-ray was negative. Echocardiogram showed diastolic dysfunction with normal ejection fraction. Allergies: NONE. Review of Systems: Negative. Social History: Negative. Medications: At home supposed to be Lipitor, metformin, hydralazine, lisinopril, Lasix, and glipizid e. Physical Examination: Vital Signs: When I saw her, blood pressure was 160/88. Vital signs were stable, afebrile. Sinus r hythm. HEENT: Negative. Neck: Supple with no bruit. Chest: Clear. Cardiac: Revealed a regular rhythm and rate with an S4 gallops. No murmurs or rubs. Abdomen: Benign. Extremities: Revealed no clubbing, cyanosis, or edema. Diagnostic Data: As stated earlier. Impression And Plan: 1.Hypertensive crisis with acute diastolic congestive heart failure. 2.Facial numbness, possibly secondary to hypertensive crisis. She has had a negative neurological w orkup. 3.Dyslipidemia. 4.Diabetes. 5.Noncompliance. I think the patient needs to be on a beta-bernice instead of hydralazine. I think she needs to be on lisinopril. She needs to be on hydrochlorothiazide instead of the Lasix. We nee d to continue her glipizide, metformin, and Lipitor. She should be able to go home whenever her bloo d pressure is better controlled. I would like to see her and have her do an outpatient stress test, preferably an MPI to rule out coronary artery disease. She has multiple cardiac risk factors. NB/MODL Voice ID: [id number] Report ID: [id number]
[2019-12-22 12:59] VITALS: BP 139/79; TEMP 97.8
--- NOTE | 2019-12-22 17:56 | P.DS ---
Admission Date: 12/20/19 Discharge Date: 12/22/19 Disposition: ROUTINE DISCHARGE Discharge Condition: GOOD Reason for Admission: Acute CHF exacerbation, L Facial Droop, HTN emergency Consultations: Cardiology - Dr. Zacarias Neurology - Dr. Jeffery Procedures: CT brain: No acute intracranial abnormality seen MRI brain: No acute intracranial abnormalities seen Echocardiogram: Normal LV size, normal EF, mild diastolic dysfunction. Problem list Acute CHF exacerbation HTN with hypertensive urgency Left-sided facial droop DM2 Brief History of Present Illness: 39-year-old female presents to the ED due to several days of elevated blood pressure, shortness of breath with exertion, bilateral leg swelling, and left- sided facial droop. Patient states she recently changed PCPs in her blood pressure medications were changed. She says last week she was started on 100 mg hydralazine. She took a few days of this and then stopped due to it making her feel dizzy. She was also having about 2 weeks of progressively worsening lower extremity edema. She attributed her hydralazine to some abdominal swelling as well. She reports that she 1st noticed her left-sided facial droop 6 days ago, there has been no change since she 1st noticed. Reports no other numbness, weakness, change in vision or hearing. PMH: HTN, DM 2, HLD In the ED, lab work was notable for elevated BNP (4006), CT head: No acute intracranial abnormality. Blood pressure was noted to be 210/113. Hospital Course: Patient was admitted for further management and evaluation. Hypertensive urgency -is unclear for left-sided facial droop was a result of her persistently elevated blood pressure. She received hydralazine in the ED which brought her b lood pressure down to 150/70, however she was developing a headache. She was switched to metoprolol 50 mg b.i.d. and hydrochlorothiazide 12.5 mg daily which controlled her elevated blood pressure. Her left-sided facial droop did not improve. 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 She was discharged with a Medrol Dosepak Acute diastolic CHF exacerbation -person with her mild shortness of breath and bilateral lower extremity edema -she initially received IV Lasix 40 mg b.i.d. to which up to goyo, this switched to hydrochlorothiazide given her elevated blood pressure and mild diastolic dysfunction. -it was felt she was having some diastolic heart failure in setting of uncontrolled hypertension. Vital Signs/Physical Exam: Temp Pulse Resp BP Pulse Ox 97.8 F 82 16 139/79 100 12/22/19 12:00 12/22/19 12:00 12/22/19 12:00 12/22/19 12:00 12/22/19 12:00 General: Alert, In no apparent distress HEENT: Mucous membr. moist/pink, Other (left sided facial weakness) Neck: Supple, JVD not distended Respiratory: Clear to auscultation bilaterally, Normal air movement Cardiovascular: Regular rate/rhythm, Normal S1 S2, Edema (1+ b/l edema to knees) Gastrointestinal: Soft and benign, Non-distended Integumentary: No rashes Neurological: Normal strength at 5/5 x4 extr, Sensation intact, Normal affect, Abnormal speech (slight slurring due to lip droop) Laboratory Data at Discharge: WBC 7.2 K/uL (4.3-10.9) D 12/21/19 05:32 Hgb 10.4 g/dL (12.0-15.0) L 12/21/19 05:32 Hct 30.3 % (36.0-45.0) L 12/21/19 05:32 Plt Count 289 K/uL (152-406) 12/21/19 05:32 PT 9.9 SECONDS (9.5-12.5) 12/20/19 11:30 INR 0.84 12/20/19 11:30 Sodium 142 mmol/L (136-145) 12/22/19 05:57 Potassium 4.1 mmol/L (3.5-5.1) 12/22/19 05:57 BUN 18 mg/dL (7-18) 12/22/19 05:57 Creatinine 1.09 mg/dL (0.55-1.3) 12/22/19 05:57 Glucose 125 mg/dL (74-106) H 12/22/19 05:57 Phosphorus 3.7 mg/dL (2.5-4.9) 12/21/19 05:32 Magnesium 2.2 mg/dL (1.8-2.4) 12/22/19 05:57 Total Bilirubin 0.2 mg/dL (0.2-1.0) 12/22/19 05:57 AST 14 U/L (15-37) L 12/22/19 05:57 ALT 11 U/L (12-78) L 12/22/19 05:57 Alkaline Phosphatase 70 U/L (45-117) 12/22/19 05:57 Home Medications: Atorvastatin Calcium 20 mg PO DAILY 12/20/19 Lisinopril [Zestril] 40 mg PO DAILY 12/20/19 Metformin HCl 1,000 mg PO BID 12/20/19 glipiZIDE [Glipizide] 1 tab PO DAILY 12/21/19 Aspirin [Aspirin EC 81 MG] 1 tab PO DAILY 30 Days #30 tablet. 12/22/19 Methylprednisolone [Medrol dosepack] 1 pkt PO DIRECTED #1 ivy 12/22/19 Metoprolol Tartrate 1 tab PO BID 30 Days #60 tablet 12/22/19 hydroCHLOROthiazide [Hydrochlorothiazide*] 1 tab PO DAILY 30 Days #30 cap 12/22/19 New Medications: Aspirin [Aspirin EC 81 MG] 1 tab PO DAILY 30 Days #30 tablet. hydroCHLOROthiazide [Hydrochlorothiazide*] 1 tab PO DAILY 30 Days #30 cap Methylprednisolone [Medrol dosepack] 1 pkt PO DIRECTED #1 ivy Metoprolol Tartrate 1 tab PO BID 30 Days #60 tablet Patient Discharge Instructions: Follow up with PCP within 1 week. Follow up with Dr. Jeffery (neurology) in 1-2 weeks Diet: ADA Activity: Ad anabella Followup: Seferino Jeffery MD [ASSOCIATE-ACTIVE - CAN ADMIT] - (Call to make an appointment. ) Time spent managing pt's care (in minutes): 35
--- NOTE | 2019-12-22 21:55 | CON ---
Reason For Consultation: Consultation is called because of left facial weakness. History Of Present Illness: Ms. Salazar is a 39-year-old right-handed patient with hypert ension, diabetes mellitus, and dyslipidemia who comes to [facility] on 12/20[facility]2019 with 6 day s of left facial drooping and headache. She did not have left hand pain. She denied any sensory los s of the left face or change in sound perception on the left ear or change in taste. At [facility] her workup included a head CT scan, which showed no acute ischemic or hemorrhagic changes. A n MRI of her brain done on the 15 was normal, negative for any acute ischemic or hemorrhagic changes. The possibility of things other than Sanders's palsy were discussed with the patient's hospitalist and the patient and eventually as she was examined, it was very clear she did not have any evidence of a nything other than a Sanders's palsy. Past Medical History: As indicated. Allergies: NO KNOWN DRUG ALLERGIES. Medications: At home, hydralazine 100 mg 3 times daily, Lasix 40 mg daily, atorvastatin 20 mg daily, glipizide 5 mg daily, metformin 1000 mg twice daily. Surgical History: None. Family History: Noncontributory. Review of Systems: Aside from mentioned, no fevers, chills, nausea, vomiting, myalgias, arthralgias, rash, headache, herbie ght change, psychiatric issues. Physical Examination: Vital Signs: Blood pressure 139/79, pulse of 82, respiratory rate 16, temperature 97.8, oxygen satur ation 100% on room air. Weight 125 pounds, height 5 feet 2 inches, BMI 20.0. General: Ms. Salazar is sitting in a chair, being wheeled out. HEENT: She is normocephalic, atraumatic. Sclerae anicteric. Oropharynx is pink and moist. Neck: Supple. Chest: Clear. Heart: Regular. Extremities: Show no clubbing, cyanosis, or edema. Neurological: She is alert and oriented to person, place, time, and situation. She has no expressiv e or receptive aphasias. She has a moderate to significant left facial drooping that is both the upp er portion at the forehead, eyelid closure weakness and left facial drooping with decreased left naso labial fold. Normally she has a normal appearance of the right face. Sensation intact V1, V2, V3 bi laterally. Tongue and palate are midline. Hearing is intact bilaterally. Motor examination in the arms and legs 5/5 proximally and distally. Sensory examination intact in upper and lower extremities . Reflexes 2+ in upper and lower extremities. Coordination intact in upper and lower extremities. Gait normal stance, stride, arm swing. Laboratory Studies: Complete blood count with differential shows mildly low hemoglobin, hematocrit, otherwise unremarkable. Coagulation panel is normal. Chemistries show glucose ranged from 125-163, potassium normal at 4.1, sodium normal. Her liver function studies show slightly low AST and ALT and urinalysis shows trace blood, 2+ protein. She did have an echocardiogram showing ejection fraction of 57%. Mild diastolic dysfunction. Assessment: Ms Salazar is a 39-year-old patient with hypertension, dyslipidemia, diabetes mellitus, and left Sanders's palsy. The discussion was including possibilities of multiple sclerosis a nd other FIRST BEATER lesions but are very unlikely. Plan: The patient is out of the window for acyclovir. She may benefit from steroids for short term as this may also impact her blood sugars. After she is discharged, she should follow up with Dr. Marcos in 1 month. May require speech therapy with electrostimulation of the facial nerve on the left to help with recovery. She should take at least aspirin 81 mg daily along with aggressive managemen t. Diabetes, hypertension, dyslipidemia. Continue with changing or improving her diet to help maximize control of blood sugars. ORION/MODL Voice ID: [id number] Report ID: [id number]
== END 2019-12-22 13:51 | disposition home or self-care (01) | DRG 304 ==
LOC: ER 11:09 → ERHOLD 13:26 → 2ND 16:38
PROVIDERS: ADMIT Hospitalist; ATTEND Hospitalist
DX: I16.0 Hypertensive urgency (principal); I50.33 Acute on chronic diastolic (congestive) heart failure; I16.9 Hypertensive crisis, unspecified; I11.0 Hypertensive heart disease with heart failure; G51.0 Bell's palsy; E78.5 Hyperlipidemia, unspecified; E11.9 Type 2 diabetes mellitus without complications; Z79.84 Long term (current) use of oral hypoglycemic drugs; Z79.899 Other long term (current) drug therapy; Z91.14 Patient's other noncompliance with medication regimen; Z20.828 Contact with and (suspected) exposure to other viral communicable diseases
CPT/HCPCS: 36415; 70450; 70551; 71045; 80048; 80053; 80076; 81003; 81025; 82947; 83735; 83880; 84100; 84484; 85025; 85610; 93005; 93306; 94760; 96365; 97116; 97161; 99285; J0360; J1940

== ENCOUNTER 2021-12-31 09:16 | Observation (INO) | payer SELFPAY ==
--- OUTSIDE RECORDS SUMMARY | 2021-12-31 09:20 | XMS REPORT | Continuity of Care Document ---
:1980 Author Organization [facility] t Address [address] [place] [address] Care Team Providers Name Role Phone MedCarl marcial Jr. Primary Care Physician Gayle Lozada Attending Clinician Unavailable Karlee Quiroz Attending Clinician Unavailable Doctor Unassigned, [place] Attending Clinician Unavailable Teresa Diaz Attending Clinician Rubio Henrandez MD Attending Clinician Nguyen Anderson MD Attending Clinician NGUYEN ANDERSON Attending Clinician Unavailable Rubio Hernandez MD Admitting Clinician RUBIO HERNANDEZ Admitting Clinician Unavailable Payers Payer Name Policy Type Policy Number Effective Date Expiration Date S ource Problems Condition Condition Condition Status Onset Resolution Last Treating Co mments Source Name Details Category Date Date Treatment Clinician Date Acute Acute Disease Active Univers renal renal 12-13 ity of failure failure 00:00: [place] superimpos superimpos 00 Me dical ed on ed on Branch chronic chronic kidney kidney disease, disease, unspecifie unspecifie d CKD d CKD stage, stage, unspecifie unspecifie d acute d acute renal renal failure failure type type General General Disease Active Overview: [facility] ers counseling counseling 12-23 Formattin ity of and advice and advice 00:00: g of this [place] for for 00 note Medical contracept contracept might be Branch hannah hannah different management management from the original. ICD10 Diagnosis Term Chief Resource Officer Utility Type 2 Type 2 Disease Active Overview: [facility] diabetes diabetes 12-23 Formattin ity of mellitus mellitus 00:00: g of this [place] as without without 00 note Medical complicati complicati might be Branch ons ons different from the original. ICD10 Diagnosis Term Chief Resource Officer Utility Rubella Rubella Disease Active Univers immune immune 12-23 ity of 00:00: [place] 00 Medical Branch Thrombocyt Thrombocyt Disease Active Overview : [facility] openia openia 12-23 Formattin ity of 00:00: g of this note Medical might be Branch different from the original. PLT- 100 on 3ICD10 Diagnosis Term Chief Resource Officer Utility Allergies, Adverse Reactions, Alerts Allergy Allergy Status Severity Reaction(s) Onset Inactive Treating Comm ents Source Name Type Date Date Clinician NO KNOWN Drug Active Univers ALLERGIE Class ity of [facility] [place] [facility] Social History Social Habit Start Date Stop Date Quantity Comments Source Alcohol intake 2021-12-23 2021-12-23 Current University of 00:00:00 00:00:00 non-drinker of [facility] alcohol (finding) Branch History SDIA 2021-12-16 2021-12-16 5 University o f Financial 00:00:00 00:00:00 [place] [facility] History SDOH Food 2021-12-16 2021-12-16 2 Univers ity of Worry 00:00:00 00:00:00 [place] [facility] History SDOH Food 2021-12-16 2021-12-16 1 Univers ity of Scarcity 00:00:00 00:00:00 [place] [facility] History SDOH 2021-12-16 2021-12-16 2 University o f Transport Med 00:00:00 00:00:00 [place] [facility] History SDOH 2021-12-16 2021-12-16 2 University o f Transport Non-Med 00:00:00 00:00:00 [facility] to 2021-12-03 2021-12-13 Not sure [facility] SARS-CoV-2 00:00:00 17:36:[address] [facility] (event) Branch Tobacco use and 2012-06-10 2012-06-10 Smokeless tobacco Un iversity of exposure 00:00:00 00:00:00 non-user [facility] Sex Assigned At [birth year] Universit y of 00:00:00 00:00:00 [facility] Smoking Status Start Date Stop Date Source Never smoked tobacco [facility] Medications Ordered Filled Start Stop Current Ordering Indication Dosage Frequency Signature Comments Components Source Medication Medication Date Date Medication? Clinician (SIG) Name Name epoetin Yes 7000U 7,000 Univers arian-epbx 9-14 Units, ity of (RETACRIT) 01:00: Slow [place] injection 00 Push, Medical 7,000 Units QTUE/THUR/ Br anch SAT AT 2000, First dose on Thu12/17/21 at 2000, Until Discontinu ed, Routine
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 insulin NPH 2021- Yes [id number] inject 20 Univers and regular 9-14 11-14 Units ity of human 70-30 00:00: 05:59 under the [place] 100 unit/mL 00 :00 skin every Me dical (70-30) morning Branch injection and inject 10 Units every evening for 30 days. insulin NPH Yes 10U 10 Units, U nivers and regular 9-13 Subcutaneo it y of human 70-30 22:00: [place], QPM, [place] (70-30 00 First dose Medical U-100 (after Branch INSULIN) last 100 unit/mL modificati (70-30) on) on Thu injection 12/17/21 at 10 Units 1700, Until Discontinu ed, Routine insulin NPH Yes 20U 20 Units, U nivers and regular 12-17 Subcutaneo it y of human 70-30 14:00: us, QAM, [place] (70-30 00 First dose Medical U-100 (after Branch INSULIN) last 100 unit/mL modificati (70-30) on) on Tue injection 12/17/21 at 20 Units 0900, Until Discontinu ed, Routine heparin Yes 2000U PRN - SEE Univ ers 1,000 12-17 INSTRUCTIO ity of unit/mL (10 13:50: NS, [place] mL) - 10 Starting Medical dialysis on Thu Branch catheter 12/17/21 at care 0850, Until Discontinu ed, Routine
For Priming of Ports:&nbs p; &n bsp; After initial saline flush, prime each port with heparin according to the priming volume listed on each catheter port for catheter lock.
carvediloL Yes 6.25mg 6.25 mg, U nivers (COREG) 12-17 Oral, BID ity of tablet 6.25 13:00: MEALS, [place] mg 00 First dose Medical on Thu Branch 12/17/21 at 0800, Until Discontinu ed, Routine insulin NPH 2021- No 30U inject 30 Univers and regular 12-17 Units ity of human 70-30 11:35: 00:00 under the [place] 100 unit/mL 56 :00 skin every Me dical (70-30) morning. Branch injection insulin NPH 2021- No 15U inject 15 Univers and regular 12-17 Units ity of human 70-30 11:35: 00:00 under the [place] 100 unit/mL 56 :00 skin every Me dical (70-30) evening. Branch injection amLODIPine 2021- No 10mg Take 10 mg Univers 10 mg 12-17 by mouth ity of tablet 11:27: 00:00 daily. [place] 53 :00 Medical Branch calcitrioL 2021- No .5ug Take 0.5 Un laci 0.5 mcg 12-17 mcg by ity of capsule 11:27: 00:00 mouth [place] 53 :00 daily. Medical Branch calcium 2021- No 667mg Take 667 Univ ers acetate,sloan 9-13 09-13 mg by ity of sphat bind, 11:27: 00:00 mouth 3 [place] 667 mg Tab 53 :00 (three) Medica l times Branch daily with meals. atenoloL 2021- No 100mg Take 100 Uni vers 100 mg 9-13 09-13 mg by ity of tablet 11:27: 00:00 mouth [place] 50 :00 daily. Medical Branch bumetanide 2021- No 1mg Take 1 mg U nivers (BUMEX 9-13 09-13 by mouth 2 ity of ORAL) 11:27: 00:00 (two) [place] 50 :00 times Medical daily. Branch guanFACINE Yes 1mg 1 mg, Univer s (TENEX) 9-13 Oral, QHS, ity of tablet 1 mg 02:00: First dose [place] 00 on [facility] 12/16/21 at Branch 2100, Until Discontinu ed, Routine calcium 0 Yes [id number] 667mg Take 1 Un laci acetate,sloan 9-13 capsule by it y of sphat bind, 00:00: mouth 3 [place] as 667 mg 00 (three) Medical capsule times Branch daily with meals. mupirocin 2 Yes Use in Univ ers % nasal 9-13 each ity of ointment 00:00: nostril [place] 00 every 12 Medical (twelve) Branch hours. atenoloL 0 Yes 100mg Take 1 Univer s 100 mg 9-13 tablet by ity of tablet 00:00: mouth [place] 00 daily. Medical Branch calcium 0 Yes [id number] 667mg Take 1 Un laci acetate,sloan 9-13 capsule by it y of sphat bind, 00:00: mouth 3 [place] as 667 mg 00 (three) Medical capsule times Branch daily with meals. mupirocin 2 Yes Use in Univ ers % nasal 9-13 each ity of ointment 00:00: nostril [place] 00 every 12 Medical (twelve) Branch hours. guanFACINE 2021-0 2021- Yes [id number] 1mg Take 1 Univers 1 mg tablet 9-13 10-14 tablet by it y of 00:00: 04:59 mouth at [place] 00 :00 bedtime Medical for 30 Branch days. bumetanide 2021- Yes [id number] 1mg Take 1 Univers 1 mg tablet 9-13 10-14 tablet by it y of 00:00: 04:59 mouth [place] 00 :00 every Medical morning Branch and evening for 30 days. insulin NPH 2021- Yes [id number] 10U inject 10 Univers and regular 9-13 10-14 Units ity of human 70-30 00:00: 04:59 under the [place] 100 unit/mL 00 :00 skin every Me dical (70-30) evening Branch injection for 30 days. amLODIPine 2021- Yes [id number] 10mg Take 1 Univers 10 mg 9-13 10-14 tablet by ity of tablet 00:00: 04:59 mouth [place] 00 :00 daily for Medical 30 days. Branch calcitrioL 2021- Yes [id number] .5ug Take 1 Univers 0.5 mcg 9-13 10-14 capsule by ity o f capsule 00:00: 04:59 mouth [place] 00 :00 daily for Medical 30 days. Branch carvediloL 2021- Yes [id number] 6.25mg Take 1 Univers 6.25 mg 9-13 10-14 tablet by ity of tablet 00:00: 04:59 mouth 2 [place] 00 :00 (two) Medical times Branch daily with meals for 30 days. guanFACINE 2021- Yes [id number] 1mg Take 1 Univers 1 mg tablet 9-13 10-14 tablet by it y of 00:00: 04:59 mouth at [place] 00 :00 bedtime Medical for 30 Branch days. bumetanide 2021- Yes [id number] 1mg Take 1 Univers 1 mg tablet 9-13 10-14 tablet by it y of 00:00: 04:59 mouth [place] 00 :00 every Medical morning Branch and evening for 30 days. insulin NPH 2021- Yes [id number] 10U inject 10 Univers and regular 9-13 10-14 Units ity of human 70-30 00:00: 04:59 under the [place] 100 unit/mL 00 :00 skin every Me dical (70-30) evening Branch injection for 30 days. amLODIPine 2021- Yes [id number] 10mg Take 1 Univers 10 mg 9- 10-14 tablet by ity of tablet 00:00: 04:59 mouth [place] 00 :00 daily for Medical 30 days. Branch calcitrioL 2021- Yes [id number] .5ug Take 1 Univers 0.5 mcg - 10-14 capsule by ity o f capsule 00:00: 04:59 mouth [place] 00 :00 daily for Medical 30 days. Branch carvediloL 2021- Yes [id number] 6.25mg Take 1 Univers 6.25 mg 9-13 10-14 tablet by ity of tablet 00:00: 04:59 mouth 2 [place] 00 :00 (two) Medical times [place] daily with meals for 30 days. insulin NPH 2021- No [id number] 20U inject 20 Univers and regular 9-13 09-13 Units ity of human 70-30 00:00: 00:00 under the [place] 100 unit/mL 00 :00 skin every Me dical (70-30) morning Branch injection for 30 days. insulin NPH 2021- No [id number] 10U inject 10 Univers and regular 9-13 09-13 Units ity of human 70-30 00:00: 00:00 under the [place] 100 unit/mL 00 :00 skin every Me dical (70-30) evening Branch injection for 30 days. bumetanide Yes 5mg 5 mg, Univer s (BUMEX) 9-12 Oral, ity of tablet 5 mg 14:30: QAM+PM, [place] as 00 First dose Medical on Mon [place] 12/16/21 at 0930, Until Discontinu ed, Routine heparin 2021- No 1000U ONCE, 1 Unive rs (1,000 9-11 09-11 dose, On ity of unit/mL, 10 21:30: 21:23 Sun [place] mL vial) 00 :00 12/15/21 at Medic al 1630, [place] Routine
HD cath loc
heparin Yes 2700U 2,700 Univers 1,000 9-11 Units, ity of unit/mL 16:45: Slow IV [place] injection 47 Push, PRN, Medi martina 2,700 Units Starting Bran ch on [place] 12/15/21 at 1145, Until Discontinu ed, Routine, Line [place] bumetanide No 1mg 1 mg, Unive rs (BUMEX) 12-15 Oral, ity of tablet 1 mg 14:00: 14:17 QAM+PM, [place] 00 :35 First dose Medical on [facility] 12/15/21 at 0900, Until Discontinu ed, Routine insulin NPH 2021- No 15U 15 Units, Univers and regular 12-14 Subcutaneo i ty of human 7030 22:00: 22:24 us, QPM, [place] (7030 00 :21 First dose Medical U-100 on [facility] INSULIN) 12/14/21 at 100 unit/mL 1700, (70-30) Until injection Discontinu 15 Units ed, Routine calcitrioL Yes .5ug 0.5 mcg, Uni vers (ROCALTROL) 12-14 Oral, ity of capsule 0.5 14:00: DAILY, [place] mcg 00 First dose Medical on [facility] 12/14/21 at 0900, Until Discontinu ed, Routine amLODIPine Yes 10mg 10 mg, Unive rs (NORVASC) 12-14 Oral, ity of tablet 10 14:00: DAILY, [place] mg 00 First dose Medical on [facility] 12/14/21 at 0900, Until Discontinu ed, Routine insulin NPH No 30U 30 Units, Univers and regular 12-14 Subcutaneo i ty of human 70-30 14:00: 22:24 us, QAM, [place] (7030 00 :21 First dose Medical U-100 on [facility] INSULIN) 12/14/21 at 100 unit/mL 0900, (70-30) Until injection Discontinu 30 Units ed, Routine ondansetron No 4mg 4 mg, Slow Univers (ZOFRAN 12-14 IV Push, ity of (PF)) 13:37: 21:30 Q6HPRN, [place] injection 4 32 :56 Nausea and Me dical mg Vomiting Branch (N/V), Starting on [facility] 12/14/21 at 0837
Do ses of ondansetro n 16 mg and above need to be administer ed via IV piggyback. For Dose >=24mg ECG monitoring is advisable.
Sliding Yes Subcutaneo Univ ers Scale 9-10 us, TID ity of Insulin - 13:00: MEALS+HS, [place] as Lispro 00 First dose Medical (HumaLOG) + on Sat Branch Fsbg 12/14/21 at Testing 0800, Until Discontinu ed, Routine heparin Yes 5000U 5,000 Univers (porcine) 9-10 Units, ity of injection 13:00: Subcutaneo [place] 5,000 Units 00 us, Q12H, Med ical First dose Branch on 12/14/21 at 0800, Until Discontinu ed, Routine bumetanide 2021- No 1mg 1 mg, Slow Univers (BUMEX) 12-14 IV Push, ity of injection 1 13:00: 01:44 Q24H, [place] mg 00 :19 First dose Medical (after Branch last modificati on) on 12/14/21 at 0800, Until Discontinu ed, Routine calcium No 667mg 667 mg, Unive rs acetate(sloan 12-14 Oral, TID it y of sphat bind) 13:00: 11:55 MEALS, [place] as (PHOSLO) 00 :54 First dose Medic al capsule 667 on Sat Branch mg 12/14/21 at 0800, Until Discontinu ed alteplase 2021- No 3.1mg 3.1 mg, Uni vers (CATHFLO 12-14 INTRA-CATH ity of ACTIVASE) 07:49: 08:39 ETER, [place] injection 00 :00 ONCE, 1 Medical 3.1 mg dose, On Branch 12/14/21 at 0300, Routine CRRT fluid 2021- No 2000mL/ 2,000 Un laci dialysate 12-1411 h mL/hr, ity of (PRISMASOL 05:45: 15:49 CRRT [place] 2K) K 2.0, 00 :56 Circuit, Medic al CA 3.5, MG CONTINUOUS Bra nch 1, HCO3 32, , Starting NA 140, CL on Sat 111.5, 12/14/21 at LACTATE 3, 0045, DEX 100, Until Sun OSM 296 12/15/21 at 1049, Routine mupirocin Yes Nasal, Univer s (BACTROBAN 9-10 Q12H, For ity of NASAL OINT) 04:43: 5 days, [place] as 2 % nasal 57 First dose Medi martina ointment conditiona Branc h l, Routine calcium 2021- No 2g 2 g, IV Univer s gluconate 2 12-14 Infusion, it y of g in NaCl 04:41: 06:13 at 200 [place] 100 mL 00 :00 mL/hr Medical (ISO-OSM) Administer Bran ch RTU IV over 30 infusion 2 Minutes, g ONCE, 1 dose, On Thu12/13/21 at 2345, Routine bumetanide 2021- No 2mg 2 mg, Slow Univers (BUMEX) 12-14 IV Push, ity of injection 2 03:35: 04:57 ONCE, 1 [place] mg 00 :00 dose, On Medical 12/13/21 Branch at 2245, Routine ondansetron 2021- No 4mg 4 mg, Slow Univers (ZOFRAN 12-14 IV Push, ity of (PF)) 02:15: 01:07 ONCE, 1 [place] injection 4 00 :00 dose, On Medi martina mg 12/13/21 Branch at 2115, VERONICA norethindro No .35mg Take 1 Tab Univers ne 11-22 by mouth ity of (MICRONOR-2 00:00: 00:00 daily. [place] as 8) 0.35 mg 00 :00 Medical tablet Branch metFORMIN 2021- No 500mg Take 1 Tab Univers (GLUCOPHAGE 11-22 by mouth 2 i ty of ) 500 mg 00:00: 00:00 (two) [place] tablet 00 :00 times Medical daily with Branch meals. Immunizations Ordered Filled Immunization Date Status Comments [facility] e Immunization Name Name TDAP 2012-07-26 Completed University 00:00:00 [place] [facility] TDAP 2012-07-26 Completed University 00:00:00 [facility] Influenza Virus 2012-06-21 [facility] Influenza Virus 2012-06-21 Completed [facility] [place] [facility] y of Vaccine 00:00:00 [facility] Vital Signs Vital Name Observation Time Observation Value Comments Source Systolic blood 2021-12-17 19:18:00 155 mm[facility]Hg[facility] Diastolic blood 2021-12-17 19:18:00 71 mm[facility]Hg[facility] pressure [facility] Heart rate 2021-12-17 19:18:00 61 /min [facility] Body temperature 2021-12-17 19:18:[address] [facility] 2021-12-17 19:18:00 18 /min [facility] Oxygen saturation in 2021-12-17 19:18:00 99 /min [facility] Arterial blood by [facility] Pulse oximetry [place] Body weight 2021-12-17 17:50:00 58 kg [facility] BMI 2021-12-17 17:50:00 24.97 kg/m2 [facility] Body height 2021-12-15 15:00:00 152.4 cm [facility] Procedures Procedure Date / Time Performing Clinician Source Performed REFERRAL- 2021-12-24 05:01:00 Doctor Unassigned, No [facility] REQUEST/RESPONSE Name [facility] POCT GLUCOSE (AUTOMATED) 2021-12-17 21:52:00 Rubio Hernandez [facility] POCT GLUCOSE (AUTOMATED) 2021-12-17 14:35:00 Rubio Hernandez [facility] HEPATITIS B SURFACE 2021-12-17 14:03:00 Patrick Miramontes [facility] ANTIBODY [facility] Branch PHOSPHORUS 2021-12-17 09:47:00 Dangelo Rae [facility] MAGNESIUM 2021-12-17 09:47:00 Dangelo Rae [facility] BASIC METABOLIC PANEL 2021-12-17 09:47:00 Dangelo Rae [facility] (NA, K, CL, CO2, GLUCOSE, Medica l Branch BUN, CREATININE, CA) CBC WITH DIFF 2021-12-17 09:47:00 Dangelo Rae [facility] HEPATITIS B SURFACE 2021-12-17 09:47:00 Patrick Miramontes [facility] POCT GLUCOSE (AUTOMATED) 2021-12-17 01:13:00 Rubio Hernandez [facility] POCT GLUCOSE (AUTOMATED) 2021-12-16 23:13:00 Rubio Hernandez [facility] POCT GLUCOSE (AUTOMATED) 2021-12-16 18:41:00 Rubio Hernandez [facility] POCT GLUCOSE (AUTOMATED) 2021-12-16 17:52:00 Rubio Hernandez [facility] POCT GLUCOSE (AUTOMATED) 2021-12-16 14:37:00 Rubio Hernandez [facility] PHOSPHORUS 2021-12-16 10:10:00 Magdalena [facility] MAGNESIUM 2021-12-16 10:10:00 Magdalena [facility] BASIC METABOLIC PANEL 2021-12-16 10:10:00 Magdalena [facility] (NA, K, CL, CO2, GLUCOSE, [facility] BUN, CREATININE, CA) TOTAL BETA HCG ASSAY 2021-12-16 10:10:00 Nguyen Anderson [facility] CBC WITH DIFF 2021-12-16 10:10:00 Magdalena [facility] POCT GLUCOSE (AUTOMATED) 2021-12-16 01:03:00 Rubio Hernandez [facility] POCT GLUCOSE (AUTOMATED) 2021-12-15 21:39:00 Rubio Hernandez [facility] POCT GLUCOSE (AUTOMATED) 2021-12-15 17:28:00 Rubio Hernandez [facility] POCT GLUCOSE (AUTOMATED) 2021-12-15 12:59:00 Rubio Hernandez [facility] PHOSPHORUS 2021-12-15 08:19:00 Ching, Ernie [facility] MAGNESIUM 2021-12-15 08:19:00 Humza [facility] BASIC METABOLIC PANEL 2021-12-15 08:19:00 Ernie Ching [facility] (NA, K, CL, CO2, GLUCOSE, Medica l Branch BUN, CREATININE, CA) CBC WITH DIFF 2021-12-15 08:19:00 Humza [facility] POCT GLUCOSE (AUTOMATED) 2021-12-15 01:32:00 Rubio Hernandez [facility] POCT GLUCOSE (AUTOMATED) 2021-12-14 21:42:00 Rubio Hernandez [facility] POCT GLUCOSE (AUTOMATED) 2021-12-14 16:39:00 Rubio Hernandez [facility] POCT GLUCOSE (AUTOMATED) 2021-12-14 13:33:00 Rubio Hernandez [facility] PHOSPHORUS 2021-12-14 09:33:00 Mike Parr [facility] MAGNESIUM 2021-12-14 09:33:00 Karolyn [facility] BASIC METABOLIC PANEL 2021-12-14 09:33:00 Mike Parr [facility] (NA, K, CL, CO2, GLUCOSE, Medica l Branch BUN, CREATININE, CA) INTACT PTH CALCIUM GROUP 2021-12-14 09:33:00 [facility] 2021-12-14 04:47:00 Mike Prar [facility] MAGNESIUM 2021-12-14 04:47:00 Mike Parr [facility] BASIC METABOLIC PANEL 2021-12-14 04:47:00 Mike Parr [facility] (NA, K, CL, CO2, GLUCOSE, Medica l Branch BUN, CREATININE, CA) CBC WITHOUT DIFF 2021-12-14 04:47:00 Mike Parr [facility] GLYCOSYLATED HEMOGLOBIN 2021-12-14 04:47:00 Mike Parr [facility] (A1C) [facility] MRSA / MSSA SCREEN BY 2021-12-14 04:47:00 Mike Parr [facility]W 2021-12-14 04:18:00 Mike Parr [facility] COVID-19 (ID NOW RAPID 2021-12-13 23:51:00 Teresa Holley [facility] TESTING) Medical [place] LAB ONLY COVID 2021-12-13 23:51:00 Teresa Holley [facility] INTERPRETATION [facility] HB ECG ROUTINE & RHYTHM 2021-12-13 22:14:11 Teresa Holley [facility] STRIP [facility] Branch PHOSPHORUS 2021-12-13 22:11:00 Lorenaradha Cathy [facility] MAGNESIUM 2021-12-13 22:11:00 Teresa Holley [facility] FERRITIN SERUM 2021-12-13 22:11:00 Mike Parr [facility] COMP. METABOLIC PANEL 2021-12-13 22:11:00 Teresa Holley [facility] ([id number]) [facility] IRON PANEL 2021-12-13 22:11:00 Mike Parr [facility] CBC WITH DIFF 2021-12-13 22:11:00 Teresa Holley Mon[facility] URINALYSIS 2021-12-13 22:11:00 Teresa Holley [facility] POCT GLUCOSE (AUTOMATED) 2021-12-13 21:47:00 [facility] 2021-12-13 05:01:00 [facility]assigned, [facility] 2021-12-13 05:01:00 [facility]igned, [facility] Start End Encounter Admission Attending Care Care Encounter Source Date/Time Date/Time Type Type Clinicians Facility Department ID 2021-05-01 Outpatient Gayle Lozada [facility] [id number] Common 13:24:[id number] [facility] 2021-05-01 [facility] [id number] Common 12:31:[id number] [facility] 2021-05-01 Outpatient Gabriella, STLMLC STLMLC [id number] Common 12:30:[id number] [facility] 2021-05-01 Outpatient Gabriella, STLMLC STLMLC [id number] Common 12:05:[id number] [facility] 2021-05-01 Outpatient Gabriella, STLMLC STLMLC [id number] Common 12:05:[id number] [facility] 2021-05-01 Outpatient Gabriella, STLMLC STLMLC [id number] Common 12:02:[id number] [facility] 2021-05-01 Outpatient Gabriella, STLMLC STLMLC [id number] Common 12:01:[id number] [facility] 2021-05-01 Outpatient Gabriella, STLMLC STLMLC [id number] Common 11:59:[id number] [facility] 2021-05-01 Outpatient Gabriella, STLMLC STLMLC [id number] Common 11:58:[id number] [facility] 2021-05-01 Outpatient Gabriella, STLMLC STLMLC [id number] Common 11:56:[id number] [facility] 2021-05-01 Outpatient Gabriella, STLMLC STLMLC [id number] Common 11:56:[id number] [facility] 2021-05-01 Outpatient Gabriella, STLMLC STLMLC [id number] Common 11:46:[id number] [facility] 2021-05-01 Outpatient Gabriella, STLMLC STLMLC [id number] Common 11:46:[id number] [facility] 2021-12-24 2021-12-24 Orders Doctor DIANA [id number] Univers 00:00:00 00:00:00 Only Unassigned, CECILIO [id number] ity of [place] [facility] [id number] [facility] [phone] [facility] 009 Branch 2021-12-13 2021-12-17 [facility] Teresa Holley [id number] [facility] 16:48:00 19:02:00 Encounter Rubio [facility] [id number] [facility] Anderson [facility] [id number] [place] [phone] [facility] 095 Branch 2021-12-13 2021-12-17 Inpatient X MONICA TRINITY [facility] [id number] [facility] 16:48:00 19:02:00 [facility] 2020-11-12 2020-11-12 Outpatient STLMLC STLMLC [id number] Common 00:00:00 00:00:00 [facility] 2020-10-15 2020-10-15 Outpatient STLMLC STLMLC [id number] Common 00:00:00 00:00:00 [facility] 2020-05-17 2020-05-17 Outpatient STLMLC STLMLC [id number] Common 00:00:00 00:00:00 [facility] 2020-01-27 2020-01-27 Outpatient STLMLC STLMLC [id number] Common 00:00:00 00:00:00 [facility] 2020-01-27 2020-01-27 Outpatient STLMLC STLMLC [id number] Common 00:00:00 00:00:00 [facility] 2020-01-24 2020-01-24 Outpatient STLMLC STLMLC [id number] Common 00:00:00 00:00:00 [facility] 2019-12-23 2019-12-23 [id number] Common 10:28:00 10:28:[address] [facility] 2019-12-23 2019-12-23 [id number] Common 10:14:00 10:14:00 t [facility] [address] [facility] Results Test Description Test Time Test Comments Results Result Comments Source INTACT PTH 2021-12-25 09:35:53 Test Item Value Reference Range Interpretation Comme nts INTACT PTH (test code = 5005) 343 PG/ML 15-65 H HEMOGLOBIN [id number] 07:20:43 Test Item Value Reference Range Interpretation Comments HEMOGLOBIN A1c (test code = 12341) 6.4 % 4.2-5.6 H LIPID [id number] 04:57:13 Test Item Value Reference Range Interpretation Comments CHOLESTEROL (test 191 MG/DL <200 code = 2210) TRIGLYCERIDES (test 77 MG/DL <150 code = 2232) HDL CHOLESTEROL (test 72 MG/DL >39 code = 2220) CALC LDL CHOL (test 102 MG/DL <100 H NOTE: C ALCULATED LDL code = 2237) IS BASED ON MAYANK-RECINOS METHOD WHICHINCLUDES ADJUSTABLE TRIGLYCERIDE:VL DL CHOLESTEROL RAT IO.THIS FACTOR VARIES B Y MEASURED TRIGLY CERIDE AND NON-HDLCHOL ESTEROL CONCENTRATIONS WITH INCREASED CALCU LATED LDL SEENIN HIGH ER TRIGLYCERIDE OR LOWER NON-HDL SPECIME NS. FOR MOREINFORMATION , SEE CLIENT ANNOUNCE MENT AT [email or web address] RATIO LDL/HDL 1.42 RATIO <3.22 (test code = 2238) COMPREHENSIVE METABOLIC [id number] 04:57:13 Test Item Value Reference Range Interpretation Comments GLUCOSE (test code = 94 MG/DL 70-99 2216) BUN (test code = 88 MG/DL 6-20 H 2207) CREATININE (test 7.92 MG/DL 0.60-1.30 H code = 2214) eGFR (2020 CKD-EPI) 6 ML/MIN/1.73 >60 L (test code = 54658) CALC BUN/CREAT (test 11 RATIO 6-28 code = 2235) SODIUM (test code = 137 MEQ/L 987-927 7046) POTASSIUM (test code 5.2 MEQ/L 3.5-5.4 = 2227) CHLORIDE (test code 101 MEQ/L 95-107 = 2214) CARBON DIOXIDE (test 22 MEQ/L 19-31 code = 2206) CALCIUM (test code = 8.3 MG/DL 8.5-10.5 L 2208) PROTEIN, TOTAL (test 5.8 G/DL 6.1-8.3 L code = 2229) ALBUMIN (test code = 3.1 G/DL 3.5-5.2 L 2200) CALC GLOBULIN (test 2.7 G/DL 1.9-3.7 code = 2240) CALC A/G RATIO (test 1.1 RATIO 1.0-2.6 code = 2234) BILIRUBIN, TOTAL <0.2 MG/DL See_Comment [Automated message] (test code = 2206) The syste m which generated this result transmit rupal reference range : <=1.2. The refe rence range was not u sed to interpret th is result as normal/abnormal . ALKALINE PHOSPHATASE 96 U/L 40-112 (test code = 2203) AST (test code = 10 U/L 9-40 2217) ALT (test code = 13 U/L 5-40 2218) ALBUMIN/CREATININE RATIO, URINE, [id number] 04:40:48 Test Item Value Reference Range Interpretation Comments CREATININE, URINE, 45.5 MG/DL NOT ESTAB CONC. (test code = 2071) ALBUMIN, URINE, 435.3 MG/DL NOT ESTAB RANDOM (test code = 64906) CALC 9567 MG/G <30 H Note: ALBUMIN/CREAT, RND Albumin/C reatinine ratio (test code = reference inter brody 34137) reflects ADA an d NKF guidelines. UNL ESS OTHERWISE INDIC ATED, ALL TESTING PERFORM ED ATCLINICAL PATH [facility]LOG[facility] LABORATORIES, [facility]. [address] [place] [address] LABORATOR Y DIRECTOR: MITESH MORENO M.D. CLIA NUMBER [id number] CAP ACCREDITATION N O. [id number] VITAMIN D, 25 [id number] 04:19:53 Test Item Value Reference Range Interpretation Comments VITAMIN D, 25 OH 17 NG/ML SEE BELOW L NOTE: 25-H YDROXYVITAMIN D (test code = 4958) ASSAY INC LUDES 25-HYDROXYVITAM IN D2 AND D3. METHODOLOGY IS CHEMILUMINESCEN T IMMUNOASSAY. INTERPRETIVE RA NGES PEDIATRIC (<17 YEARS) . . . . . . . . . . . NG/ML 20-100ADULT: IN SUFFICIENT . . . . . . . . . . . . . . NG/ML <20 SUBOP TIMAL . . . . . . . . . . . . . . . NG/ML 20-29 OPT IMAL . . . . . . . . . . . . . . . . . NG/ML 30-100 POCT GLUCOSE (AUTOMATED)2021-12-17 21:53:12 Test Item Value Reference Range Interpretation Comments POCT GLU (test code = 6675757666) 150 mg/dL 70-110 H Lab Interpretation (test code = Abnormal 09263-3) [facility] GLUCOSE (AUTOMATED)2021-12-17 14:42:26 Test Item Value Reference Range Interpretation Comments POCT GLU (test code = 8300802270) 122 mg/dL 70-110 H Lab Interpretation (test code = Abnormal 72385-4) [facility] GLUCOSE (AUTOMATED)2021-12-17 01:14:30 Test Item Value Reference Range Interpretation Comments POCT GLU (test code = 6443240556) 208 mg/dL 70-110 H Lab Interpretation (test code = Abnormal 18386-4) [facility] 23:14:33 Test Item Value Reference Range Interpretation Comments POCT GLU (test code = 3040109321) 128 mg/dL 70-110 H Lab Interpretation (test code = Abnormal 46415-5) [facility] GLUCOSE (AUTOMATED)2021-12-16 18:42:26 Test Item Value Reference Range Interpretation Comments POCT GLU (test code = 5059754573) 84 mg/dL 70-110 Lab Interpretation (test code = Normal 32002-0) [facility] GLUCOSE (AUTOMATED)2021-12-16 18:01:48 Test Item Value Reference Range Interpretation Comments POCT GLU (test code = 3958543145) 55 mg/dL 70-110 L Lab Interpretation (test code = Abnormal 72365-9) [facility] GLUCOSE (AUTOMATED)2021-12-16 14:48:40 Test Item Value Reference Range Interpretation Comments POCT GLU (test code = 6056253148) 190 mg/dL 70-110 H Lab Interpretation (test code = Abnormal 43908-1) [facility] GLUCOSE (AUTOMATED)2021-12-16 01:04:20 Test Item Value Reference Range Interpretation Comments POCT GLU (test code = 7443293292) 170 mg/dL 70-110 H Lab Interpretation (test code = Abnormal 37938-2) [facility] GLUCOSE (AUTOMATED)2021-12-15 21:51:11 Test Item Value Reference Range Interpretation Comments POCT GLU (test code = 7686602956) 104 mg/dL 70-110 Lab Interpretation (test code = Normal 23571-6) [facility] GLUCOSE (AUTOMATED)2021-12-15 17:30:42 Test Item Value Reference Range Interpretation Comments POCT GLU (test code = 2969856377) 110 mg/dL 70-110 Lab Interpretation (test code = Normal 54358-4) [facility] GLUCOSE (AUTOMATED)2021-12-15 13:11:31 Test Item Value Reference Range Interpretation Comments POCT GLU (test code = 9246035316) 93 mg/dL 70-110 Lab Interpretation (test code = Normal 82033-9) [facility] Test Item Value Reference Range Interpretation Comments PHOSPHORUS (test code = 1834992448) 4.0 mg/dL 2.5-5 Lab Interpretation (test code = Normal 90982-1) [facility] 08:38:04 Test Item Value Reference Range Interpretation Comments MAGNESIUM (test code = 6961989122) 2.0 mg/dL 1.7-2.4 Lab Interpretation (test code = Normal 49154-8) [facility] (NA, K, CL, CO2, GLUCOSE, BUN, CREATININE, CA)2021-12-15 08:38:04 Test Item Value Reference Range Interpretation Comments NA (test code = 134 mmol/L 135-145 L 4295514957) K (test code = 3.7 mmol/L 3.5-5 4252197818) CL (test code = 107 mmol/L 98-108 4133276080) CO2 TOTAL (test code = 24 mmol/L 23-31 3827016559) AGAP (test code = 2-16 3517999264) BUN (test code = 70 mg/dL 7-23 H 9551270160) GLUCOSE (test code = 104 mg/dL 70-110 0070579815) CREATININE (test code = 4.05 mg/dL 0.5-1.04 H 6624254297) CALCIUM (test code = 8.0 mg/dL 8.6-10.6 L 3028593980) eGFR (test code = mL/min/1.73m2 2920892911) SHEREE (test code = SHEREE) Association of Glomerular Filtration Rate (GFR) and Staging of Kidney Disease* + --+ --+ ------+| GFR (mL/min/1.73 m2) ?| With Kidney Damage ?| ?Without Kidney Damage+ --------+ --------+ +| ?>90 ?| ?Stage one ?| ? Normal ?+ ---+ ---+ -------+| ?60-89 ?| ?Stage two ?| ? Decreased GFR ? + --+ --+ ------+| ?30-59 ?| ?Stage three ?| ? Stage three ? + --+ --+ ------+| ?15-29 ?| ?Stage four ? | ? Stage four ?+ ---+ ---+ -------+| ?<15 (or dialysis) ? ?| ?Stage five ? | ? Stage five ?+ ---+ ---+ -------+ *Each stage assumes the associated GFR level has been in effect for at least three months. ?Stages 1 to 5, with or without kidney disease, indicate chronic kidney disease. Notes: Determination of stages one and two (with eGFR >59mL/min/1.73 m2) requires estimation of kidney damage for at least three months as defined by structural or functional abnormalities of the kidney, manifested by either:Pathological abnormalities or Markers of kidney damage (including abnormalities in the composition of the blood or urine or abnormalities in imaging tests). Lab Interpretation Abnormal (test code = 93783-9) [facility] WITH [id number] 08:27:45 Test Item Value Reference Range Interpretation Comments WBC (test code = See_Comment [Automated 0427-2) message] The sy stem which generated this result transmitted reference range : 4.30 - 11.10 10*3/?L. The reference range was not used to interpret this result as normal/abnormal . RBC (test code = See_Comment L [Automated 859-8) message] The sy stem which generated this result transmitted reference range : 3.93 - 5.25 10*6/?L. The reference range was not used to interpret this result as normal/abnormal . HGB (test code = 8.8 g/dL 11.6-15 L 718-7) HCT (test code = 26.2 % 35.7-45.2 L 4544-3) MCV (test code = 85.6 fL 80.6-95.5 787-2) MCH (test code = 28.8 pg 25.9-32.8 785-6) MCHC (test code = 33.6 g/dL 31.6-35.1 786-4) RDW-SD (test code = 41.1 fL 39-49.9 16609-5) RDW-CV (test code = 13.4 % 12-15.5 788-0) PLT (test code = See_Comment [Automated 777-3) message] The sy stem which generated this result transmitted reference range : 166 - 358 10*3/ ?L. The reference r alba was not used to interpret this result as normal/abnormal . MPV (test code = 12.7 fL 9.5-12.9 20909-2) NRBC/100 WBC (test See_Comment [Automat ed code = 4880745911) message] The system which generated this result transmitted reference range : 0.0 - 10.0 /100 WBCs. The refer ence range was not u sed to interpret th is result as normal/abnormal . NRBC x10^3 (test code See_Comment [Auto mated = 9605231217) message] The s ystem which generated this result transmitted reference range : 10*3/?L. The reference range was not used to interpret this result as normal/abnormal . GRAN MAT (NEUT) % 59.1 % (test code = 770-8) IMM GRAN % (test code 0.30 % = 7999123036) LYMPH % (test code = 24.0 % 736-9) MONO % (test code = 9.4 % 5905-5) EOS % (test code = 6.5 % 713-8) BASO % (test code = 0.7 % 706-2) GRAN MAT x10^3(ANC) 3.38 10*3/uL 1.88-7.09 (test code = 1622905201) IMM GRAN x10^3 (test 0-0.06 code = 0253321299) LYMPH x10^3 (test code 1.37 10*3/uL 1.32-3.29 = 731-0) MONO x10^3 (test code 0.54 10*3/uL 0.33-0.92 = 742-7) EOS x10^3 (test code = 0.37 10*3/uL 0.03-0.39 711-2) BASO x10^3 (test code 0.04 10*3/uL 0.01-0.07 = 704-7) Lab Interpretation Abnormal (test code = 33508-8) [facility] GLUCOSE (AUTOMATED)2021-12-15 01:42:14 Test Item Value Reference Range Interpretation Comments POCT GLU (test code = 9841792676) 201 mg/dL 70-110 H Lab Interpretation (test code = Abnormal 08168-8) [facility] GLUCOSE (AUTOMATED)2021-12-14 21:43:44 Test Item Value Reference Range Interpretation Comments POCT GLU (test code = 6621917688) 175 mg/dL 70-110 H Lab Interpretation (test code = Abnormal 05701-4) [facility] GLUCOSE (AUTOMATED)2021-12-14 16:41:09 Test Item Value Reference Range Interpretation Comments POCT GLU (test code = 2976956372) 162 mg/dL 70-110 H Lab Interpretation (test code = Abnormal 25306-1) [facility] GLUCOSE (AUTOMATED)2021-12-14 13:34:20 Test Item Value Reference Range Interpretation Comments POCT GLU (test code = 8363140812) 79 mg/dL 70-110 Lab Interpretation (test code = Normal 02027-6) [facility] GLUCOSE (AUTOMATED)2021-12-13 21:49:23 Test Item Value Reference Range Interpretation Comments POCT GLU (test code = 7503097662) 133 mg/dL 70-110 H Lab Interpretation (test code = Abnormal 22764-7) [facility] [id number] 07:08:12 Test Item Value Reference Range Interpretation Comments HEMOGLOBIN A1c (test 6.6 % 4.2-5.6 H AMERIC AN DIABETES code = 14477) ASSOCIATION IDELINES FOR HGB A1C: PREDIABETES/INC REASED RISK . . . . . . . 5.7 -6.4% DIAGNOSIS OF DI ABETES . . . . . . . . . >=6 .5% WITH CONFIRMATION OR APPROPRIATE SYMPTOMS NOTE: ASSAY MAY BE AFFECTED BY HEMOGLOBINOPATH IES (SICKLE CELL ANEMIA, S- C DISEASE, OTHERS) OR RAJAN FICIALLY LOWERED BY DECR EASED RED CELL SURVIVAL ( HEMOLYTIC ANEMIAS, BLOOD LOSS, ETC.). CONSIDER ALTERN ATE TESTING OR LABORATORY C ONSULTATION. LIPID PANEL WITH REFLEX DIRECT [id number] 04:13:17 Test Item Value Reference Range Interpretation Comments CHOLESTEROL (test 249 MG/DL <200 H code = 2210) TRIGLYCERIDES (test 217 MG/DL <150 H code = 2232) HDL CHOLESTEROL (test 62 MG/DL >39 code = 2220) CALC LDL CHOL (test 151 MG/DL <100 H NOTE: C ALCULATED LDL code = 2237) IS BASED ON MAYANK-RECINOS METHOD WHICHINCLUDES ADJUSTABLE TRIGLYCERIDE:VL DL CHOLESTEROL RAT IO.THIS FACTOR VARIES B Y MEASURED TRIGLY CERIDE AND NON-HDLCHOL ESTEROL CONCENTRATIONS WITH INCREASED CALCU LATED LDL SEENIN HIGH ER TRIGLYCERIDE OR LOWER NON-HDL SPECIME NS. FOR MOREINFORMATION , SEE CLIENT ANNOUNCE MENT AT [email or web address] LDL/HDL 2.44 RATIO <3.22 (test code = 2238) COMPREHENSIVE METABOLIC [id number] 04:13:17 Test Item Value Reference Range Interpretation Comments GLUCOSE (test code = 190 MG/DL 70-99 H 2216) BUN (test code = 152 MG/DL 6-20 H RESULTS RE CHECKED 2207) AND VERIFIED CREATININE (test 9.82 MG/DL 0.60-1.30 H code = 2214) eGFR (2020 CKD-EPI) 5 ML/MIN/1.73 >60 L (test code = 47140) CALC BUN/CREAT (test 15 RATIO 6-28 code = 2235) SODIUM (test code = 135 MEQ/L 212-933 2957) POTASSIUM (test code 6.2 MEQ/L 3.5-5.4 H RESUL TS RECHECKED = 2227) AND VERIFIED CHLORIDE (test code 95 MEQ/L 95-107 = 2215) CARBON DIOXIDE (test 19 MEQ/L 19-31 code = 2206) CALCIUM (test code = 7.7 MG/DL 8.5-10.5 L 2208) PROTEIN, TOTAL (test 6.0 G/DL 6.1-8.3 L code = 2229) ALBUMIN (test code = 3.1 G/DL 3.5-5.2 L 2200) CALC GLOBULIN (test 2.9 G/DL 1.9-3.7 code = 2240) CALC A/G RATIO (test 1.1 RATIO 1.0-2.6 code = 2234) BILIRUBIN, TOTAL <0.2 MG/DL See_Comment [Automated message] (test code = 220) The syste m which generated this result transmitted ref erence range: <=1.2. T he reference range was not used to int erpret this result as normal/abnormal . ALKALINE PHOSPHATASE 111 U/L 40-112 (test code = 220) AST (test code = 8 U/L 9-40 L 2217) ALT (test code = 14 U/L 5-40 UNLESS OTH ERWISE 2218) INDICATED, ALL TESTING PERFORM ED [facility]CL[facility], [place] [address] [place] [address] [facility] DIRECTOR: MITESH MORENO M.D. CLIA NUMBER [id number] CAP ACCREDITATION N O. [id number]"
[2021-12-31 10:11] LABS: Absolute Lymphocytes (CBC) 0.9 K/uL (0.7-4.9); Hematocrit 22.6 % (36.0-45.0); MCV 85.7 fL (80-100); MPV 10.4 fL (7.6-11.3); RBC Red Blood Cell Count 2.64 M/uL (3.86-4.86)
--- NOTE | 2021-12-31 10:29 | ER ---
Nurse's Notes [facility] Name: Garima Shea Age: 41 yrs Sex: Female : 1980 Arrival Date: 12/31/2021 Time: 09:18 Bed 4 Private MD: Diagnosis: End stage renal disease-on HD;Generalized edema;Dyspnea;Anemia in other chronic diseases classified elsewhere Presentation: 12/31 09:39 Chief complaint: Patient states: "I feel tired and my legs are swollen, I need aa5 dialysis". Pt reports last dialysis was December 17. Coronavirus screen: At this time, the client does not indicate any symptoms associated with coronavirus-19. Ebola Screen: Patient denies travel to an Ebola-affected area in the 21 days before illness onset. Initial Sepsis Screen: Does the patient meet any 2 criteria? No. Patient's initial sepsis screen is negative. Does the patient have a suspected source of infection? No. Patient's initial sepsis screen is negative. Risk Assessment: Do you want to hurt yourself or someone else? Patient reports no desire to harm self or others. Onset of symptoms was December 2021. 09:39 Method Of Arrival: Ambulatory aa5 09:39 Acuity: MARYBETH 2 aa5 Triage Assessment: 09:45 General: Appears in no apparent distress. uncomfortable, Behavior is calm, cooperative, bp appropriate for age. Pain: Complains of pain in right leg and left leg. EENT: No deficits noted. Neuro: No deficits noted. Cardiovascular: No deficits noted. Respiratory: No deficits noted. GI: No signs and/or symptoms were reported involving the gastrointestinal system. : No signs and/or symptoms were reported regarding the genitourinary system. Derm: No deficits noted. Musculoskeletal: Reports SWELLING IN BLE. Historical: - Allergies: 09:41 No Known Allergies; aa5 - PMHx: 09:41 Diabetes - NIDDM; High Cholesterol; Hypertension; ESRD; Dialysis; aa5 - Immunization history:: Adult Immunizations unknown. - Social history:: Smoking status: Patient denies any tobacco usage or history of. Screenin:30 Abuse screen: Denies threats or abuse. Denies injuries from another. Nutritional bp screening: No deficits noted. Tuberculosis screening: No symptoms or risk factors identified. Fall Risk None identified. Assessment: 09:45 General: SEE TRIAGE NOTE. bp 11:30 Reassessment: ADMIT IN PROCESS. bp Vital Signs: 09:39 BP 142 / 68; Pulse 67; Resp 16 S; Temp 97.7(TE); Pulse Ox 100% on R/A; Weight 64.86 kg; aa5 10:30 BP 133 / 64; Pulse 66; Resp 10; Pulse Ox 100% ; bp 11:30 BP 134 / 73; Pulse 66; Resp 12; Pulse Ox 100% ; bp ED Course: 09:18 Patient arrived in ED. mr 09:31 Gilbert Oliveros, RN is Primary Nurse. bp 09:31 Arm band placed on. aa5 09:32 Jj Gleason MD is Attending Physician. jesse 09:41 Triage completed. aa5 09:50 Inserted saline lock: 20 gauge in right antecubital area, using aseptic technique. bp Blood collected. 10:27 Sidney Pedraza MD is Hospitalizing Provider. jesse 11:30 Patient has correct armband on for positive identification. Bed in low position. Call bp light in reach. Side rails up X2. 13:12 Chest Pa And Lat (2 Views) In Process Unspecified. EDMS 14:12 No provider procedures requiring assistance completed. Patient admitted, IV remains in bp place. Administered Medications: No medications were administered Medication: 11:30 VIS not applicable for this client. bp Outcome: 10:28 Decision to Hospitalize by Provider. jesse 14:13 Admitted to Med/surg accompanied by tech, via wheelchair, room 404, with chart. bp 14:13 Condition: stable 14:13 Instructed on the need for admit. 14:13 Patient left the ED. bp Signatures: Dispatcher [employer] EDMS Jj Gleason MD MD cha Rivera, Mary mr Jason, Krystle, RN RN aa5 Gilbert Oliveros, RN RN bp
--- NOTE | 2021-12-31 10:29 | EDPHYS ---
Physician Documentation [facility] Name: Garima Shea Age: 41 yrs Sex: Female : 1980 Arrival Date: 12/31/2021 Time: 09:18 Bed 4 Private MD: Jj Arndt HPI: 12/31 10:20 This 41 yrs old Female presents to ER via Ambulatory with complaints of Leg jesse Swelling, Fatigue. 10:20 The patient presents with swelling, tenderness. The complaints affect the right leg and jesse left leg. Context: esrd on hd , last hd 12/17. Onset: The symptoms/episode began/occurred 5 day(s) ago. Modifying factors: The symptoms are alleviated by nothing. the symptoms are aggravated by movement, weight bearing. Associated signs and symptoms: Pertinent positives: swelling, weakness. esrd on hd, sob , needs dialysis, last 12/18. Historical: - Allergies: 09:41 No Known Allergies; aa5 - PMHx: 09:41 Diabetes - NIDDM; High Cholesterol; Hypertension; ESRD; Dialysis; aa5 - Immunization history:: Adult Immunizations unknown. - Social history:: Smoking status: Patient denies any tobacco usage or history of. ROS: 10:22 Constitutional: Negative for fever, chills, and weight loss, Eyes: Negative for injury, jesse pain, redness, and discharge, ENT: Negative for injury, pain, and discharge, Neck: Negative for injury, pain, and swelling, Cardiovascular: Negative for chest pain, palpitations, and edema, Abdomen/GI: Negative for abdominal pain, nausea, vomiting, diarrhea, and constipation, Back: Negative for injury and pain, : Negative for injury, bleeding, discharge, and swelling, Skin: Negative for injury, rash, and discoloration, Neuro: Negative for headache, weakness, numbness, tingling, and seizure, Psych: Negative for depression, anxiety, suicide ideation, homicidal ideation, and hallucinations, Allergy/Immunology: Negative for hives, rash, and allergies, Endocrine: Negative for neck swelling, polydipsia, polyuria, polyphagia, and marked weight changes, Hematologic/Lymphatic: Negative for swollen nodes, abnormal bleeding, and unusual bruising. 10:22 Respiratory: Positive for cough, with no reported sputum, shortness of breath. 10:22 MS/extremity: Positive for swelling, of the right leg and left leg. Exam: 10:22 Constitutional: This is a well developed, well nourished patient who is awake, alert, jesse and in no acute distress. Head/Face: Normocephalic, atraumatic. Eyes: Pupils equal round and reactive to light, extra-ocular motions intact. Lids and lashes normal. Conjunctiva and sclera are non-icteric and not injected. Cornea within normal limits. Periorbital areas with no swelling, redness, or edema. ENT: Nares patent. No nasal discharge, no septal abnormalities noted. Tympanic membranes are normal and external auditory canals are clear. Oropharynx with no redness, swelling, or masses, exudates, or evidence of obstruction, uvula midline. Mucous membranes moist. Neck: Trachea midline, no thyromegaly or masses palpated, and no cervical lymphadenopathy. Supple, full range of motion without nuchal rigidity, or vertebral point tenderness. No Meningismus. Chest/axilla: Normal chest wall appearance and motion. Nontender with no deformity. No lesions are appreciated. Cardiovascular: Regular rate and rhythm with a normal S1 and S2. No gallops, murmurs, or rubs. Normal PMI, no JVD. No pulse deficits. Abdomen/GI: Soft, non-tender, with normal bowel sounds. No distension or tympany. No guarding or rebound. No evidence of tenderness throughout. Back: No spinal tenderness. No costovertebral tenderness. Full range of motion. Pelvic Exam: Normal external genitalia. Speculum exam with closed cervical os, no discharge or bleeding noted. Bimanual exam with normal adnexa, no adnexal or cervical motion tenderness. Normal uterus. Female : Normal external genitalia. Skin: Warm, dry with normal turgor. Normal color with no rashes, no lesions, and no evidence of cellulitis. Neuro: Awake and alert, GCS 15, oriented to person, place, time, and situation. Cranial nerves II-XII grossly intact. Motor strength 5/5 in all extremities. Sensory grossly intact. Cerebellar exam normal. Normal gait. Psych: Awake, alert, with orientation to person, place and time. Behavior, mood, and affect are within normal limits. 10:22 ECG was reviewed by the Attending Physician. 10:22 Respiratory: mild respiratory distress is noted, Breath sounds: decreased breath sounds, that are mild, stridor, is not appreciated, Respiratory rate: 16 Vital Signs: 09:39 BP 142 / 68; Pulse 67; Resp 16 S; Temp 97.7(TE); Pulse Ox 100% on R/A; Weight 64.86 kg; aa5 10:30 BP 133 / 64; Pulse 66; Resp 10; Pulse Ox 100% ; bp 11:30 BP 134 / 73; Pulse 66; Resp 12; Pulse Ox 100% ; bp MDM: 09:32 Patient medically screened. [facility] 10:26 Differential diagnosis: contusion. Data reviewed: vital signs, nurses notes, lab test jesse result(s), EKG, radiologic studies, plain films. Data interpreted: compliance monitor: rate is 67 beats/min, rhythm is regular, Pulse oximetry: on room air is 100 %. Test interpretation: by ED physician or midlevel provider: ECG, plain radiologic studies. Counseling: I had a detailed discussion with the patient and/or guardian regarding: the historical points, exam findings, and any diagnostic results supporting the discharge/admit diagnosis, lab results, radiology results, the need for further work-up and treatment in the hospital. 12/31 09:44 Order name: Basic Metabolic Panel; Complete Time: 11:37 [facility] 12/31 09:44 Order name: CBC with Diff; Complete Time: 11:37 [facility] 12/31 09:44 Order name: Troponin HS; Complete Time: 11:37 jesse 12/31 12:34 Order name: Basic Metabolic Panel EDFL 12/31 12:34 Order name: Basic Metabolic Panel EDMS 12/31 12:34 Order name: Basic Metabolic Panel EDMS 12/31 12:34 Order name: Basic Metabolic Panel EDMS 12/31 12:34 Order name: CBC with Automated Diff EDMS 12/31 12:34 Order name: CBC with Automated Diff EDMS 12/31 12:34 Order name: CBC with Automated Diff EDMS 12/31 12:34 Order name: CBC with Automated Diff EDMS 12/31 12:34 Order name: Magnesium EDMS 12/31 12:34 Order name: Magnesium EDMS 12/31 12:34 Order name: Phosphorus EDMS 12/31 09:44 Order name: EKG; Complete Time: 09:45 [facility] 12/31 09:44 Order name: Cardiac monitoring; Complete Time: 09:50 [facility] 12/31 09:44 Order name: EKG - Nurse/Tech; Complete Time: 10:04 [facility] 12/31 09:44 Order name: IV Saline Lock; Complete Time: :50 [facility] 12/31 09:44 Order name: Labs collected and sent; Complete Time: 50 [facility] 12/31 09:44 Order name: O2 Per Protocol; Complete Time: 09:50 [facility] 12/31 09:44 Order name: O2 Sat Monitoring; Complete Time: : [facility] 12/31 11:45 Order name: Chest Pa And Lat (2 Views) EDFL 12/31 12:34 Order name: CONS Physician Consult [facility] 12/31 12:34 Order name: Renal EDFL 12/31 12:34 Order name: Phosphorus EDFL 12/31 12:43 Order name: SARS RAPID [facility] 12/31 12:54 Order name: Echo with Doppler EDFL EC:22 Rate is 65 beats/min. Rhythm is regular. QRS [place] is Normal. [place] interval is normal. QRS jesse interval is normal. QT interval is normal. No Q waves. T waves are Normal. No ST changes noted. Clinical impression: Normal ECG and No evidence of ischemia. Interpreted by me. Reviewed by me. Administered Medications: No medications were administered Disposition Summary: 12/31/21 10:28 Hospitalization Ordered Hospitalization Status: Observation jesse Provider: Sidney Pedraza cha Location: Telemetry/MedSurg (observation) jesse Condition: Fair jesse Problem: new jesse Symptoms: have improved jesse Bed/Room Type: Standard jesse Room Assignment: 404(12/31/21 13:22) iw Diagnosis - End stage renal disease - on HD jesse - Generalized edema jesse - Dyspnea jesse - Anemia in other chronic diseases classified elsewhere jesse Forms: - Medication Reconciliation Form jesse - SBAR form jesse Signatures: Dispatcher [employer] EDFL Jj Gleason MD MD cha Williams, Irene, RN RN iw Krystle Jason, RN RN aa5 Corrections: (The following items were deleted from the chart) 09:52 09:37 Chest Pa And Lat (2 Views) ordered. [facility] 13: 10:28 jesse iw
[2021-12-31 10:45] LABS: Potassium 4.7 mmol/L (3.5-5.1); Troponin High Sensitivity 12.1 pg/mL (<58.9)
[2021-12-31] MEDS ORDERED: MANNITOL 25% 12.5 GM/50 ML VIAL IV PRN (11:37)
[2021-12-31] MEDS ORDERED: NA CHLORIDE 0.9% 1,000 ML IV PRN (11:37)
[2021-12-31] MEDS ORDERED: EPOETIN ALFA-EPBX 10,000 UNIT/ML VIAL SQ ONE (12:00)
[2021-12-31] MEDS ORDERED: ALBUMIN HUMAN 25% 50 ML IV SCH (12:00)
[2021-12-31] MEDS: SEVELAMER CARBONATE 800 MG TABLET PO SCH ×2 (12:00→17:00)
--- NOTE | 2021-12-31 12:37 | P.HP ---
Certification for Inpatient Patient admitted to: Observation With expected LOS: <2 Midnights Patient will require the following post-hospital care: None Practitioner: I am a practitioner with admitting privileges, knowledge of patient current condition, hospital course, and medical plan of care. Services: Services provided to patient in accordance with Admission requirements found in Title 42 Section 412.3 of the Code of Federal Regulations Patient History Date of Service: 12/31/21 Reason for admission: Hypervolemia in ESRD History of Present Illness: Ms. Garima Mcintosh is a pleasant 41 year old female who has a past medical history of end-stage renal disease due to hypertensive and diabetic nephropathy, chronic diastolic congestive heart failure, type II diabetes mellitus, hypertension, and hyperlipidemia who presents to the [facility] Emergency Department for lower extremity swelling. She reports that, over the last one week, she has been developing progressively worsening fatigue and lower extremity swelling. She states that she was recently started on hemodialysis about one month ago, but has had issues receiving dialysis as an outpatient due to lack of insurance. She reports that her last hemodialysis session was on 12/17/2021. She denies any other possible inciting or alleviating factors for her fatigue. She has not tried taking any medications for her symptoms. On review of systems, she denies any fevers, chills, headaches, dizziness, syncope, chest pain, palpitations, shortness of breath, w heezing, cough, abdominal pain, nausea/vomiting, diarrhea, constipation, hematochezia, melena, dysuria, hematuria, myalgia, or any other symptoms. She presented to the Emergency Department for further evaluation. Upon presentation, her vital signs were stable. Her laboratory studies were notable for a BUN of 126 and a creatinine of 8.82. EKG revealed normal sinus rhythm, without STEMI criteria. Nephrology was consulted in the Emergency Department, and recommendations are pending. She was admitted to the General Internal Medicine service for further evaluation. Allergies No Known Allergies Allergy (Verified 12/20/19 17:39) Home medications list reviewed: Yes Home Medications: Amlodipine Besylate 10 mg PO DAILY 12/31/21 Atenolol [Tenormin] mg PO 12/31/21 Bumetanide [Bumex*] 0.5 mg PO 12/31/21 Calcium Acetate 667 mg PO TID 12/31/21 Insulin 70/30 NPH/Reg Human [Novolin 70/30*] unit SQ BID 12/31/21 calcitrioL [Rocaltrol] 1 cap PO DAILY 12/31/21 - Past Medical/Surgical History Diabetic: Yes -: HTN -: DM2 -: HLD -: ESRD -: Right-Sided TDC placement - Family History Father -: Heart disease, Diabetes Mother -: Hypertension - Social History Smoking Status: Never smoker Alcohol use: No CD- Drugs: No Caffeine use: Yes Review of Systems 10-point ROS is otherwise unremarkable General: Malaise Eyes: Unremarkable ENT: Unremarkable Respiratory: Unremarkable Cardiovascular: Edema Gastrointestinal: Unremarkable Genitourinary: Unremarkable Musculoskeletal: Unremarkable Integumentary: Unremarkable Neurological: Unremarkable Lymphatics: Unremarkable Physical Examination - Vital Signs Temperature: 97.7 F Blood Pressure: 142/68 Pulse: 67 Respirations: 16 Pulse Ox (%): 100 (room air) - Physical Exam General: Alert, In no apparent distress, Oriented x3 HEENT: Atraumatic, PERRLA, Mucous membr. moist/pink, EOMI, Sclerae nonicteric Neck: Supple, JVD distended (minimally) Respiratory: Normal air movement, Crackles/rales (faint bibasilar) Cardiovascular: Regular rate/rhythm, Normal S1 S2, No gallops, No rubs, No murmurs, Edema (2+ pitting) Gastrointestinal: Normal bowel sounds, Soft and benign, Non-distended, No tenderness, No rebound, No guarding Musculoskeletal: No clubbing Integumentary: No rashes Neurological: Normal strength at 5/5 x4 extr, Cranial nerves 3-12 intact, Normal affect - Studies Laboratory Data (last 24 hrs) 12/31/21 09:50: WBC 5.50, Hgb 7.7 L, Hct 22.6 L, Plt Count 208 12/31/21 09:50: Sodium 134 L, Potassium 4.7, BUN 126 H, Creatinine 8.82 H*, Glucose 122 H Assessment and Plan - Plan # Suspect Acute on Chronic Decompensated Diastolic Congestive Heart Failure with Preserved Ejection Fraction superimposed on Hypervolemia in the setting of End- Stage Renal Disease not compliant with Hemodialysis # Suspect Anemia of Chronic Kidney Disease # Hypertension # Hyperlipidemia - Consulted Nephrology and spoke with Dr. Huffman - recommendations appreciated - Consult Cardiology - recommendations appreciated - Ordered transthoracic echocardiogram - Volume removal will need to be acheived via hemodialysis - Hold home bumetanide for now - Hold atenolol until dose is confirmed - Hold home amlodipine given edema - Continue home calcitriol, calcium acetate - Daily weights - Strict I/O - Cardiac diet, 1.5 L fluid restriction, 2 g Na restriction # Type II Diabetes Mellitus - Hold home Novolin 70/30 until dose is confirmed - Correction scale insulin ordered Sidney Pedraza M.D. Discharge Plan: Home Plan to discharge in: 24 Hours - Advance Directives Does patient have a Living Will: No Does patient have a Durable POA for Healthcare: No
[2021-12-31 13:08] LABS: SARS-CoV-2 Antigen Rapid Res Negative (Negative)
--- NOTE | 2021-12-31 13:41 | RAD REPORT ---
EXAM DESCRIPTION: Zarina Pa And Lat (2 Views)12/31/2021 1:12 pm CLINICAL HISTORY: Chest pain COMPARISON: 2019 FINDINGS: Mild bilateral interstitial lung opacities. The heart is moderately enlarged. Central venous catheter in place IMPRESSION: Mild interstitial pulmonary edema
[2021-12-31] MEDS: INSULIN -REGULAR HUMAN 50 UNIT/0.5 ML ML SQ SCH ×2 (16:30→20:37)
[2021-12-31 18:29] VITALS: BMI 27.7
[2022-01-01 03:50] LABS: Absolute Lymphocytes (CBC) 1.2 K/uL (0.7-4.9); Hematocrit 24.4 % (36.0-45.0); Lymphocytes % 23.1 % (15.3-44.8); MCV 85.5 fL (80-100); MPV 10.3 fL (7.6-11.3); RBC Red Blood Cell Count 2.85 M/uL (3.86-4.86)
[2022-01-01 04:04] LABS: Magnesium 2.6 mg/dL (1.8-2.4); Phosphorus 4.7 mg/dL (2.5-4.9); Potassium 3.8 mmol/L (3.5-5.1)
[2022-01-01] MEDS: INSULIN -REGULAR HUMAN 50 UNIT/0.5 ML ML SQ SCH ×2 (07:30→11:44)
[2022-01-01] MEDS: SEVELAMER CARBONATE 800 MG TABLET PO SCH ×2 (08:29→11:54)
[2022-01-01] MEDS ORDERED: VITAMIN D 5,000 UNIT CAP PO SCH (09:00)
[2022-01-01] MEDS ORDERED: CALCITROL 0.25 MCG CAP PO SCH (09:00)
[2022-01-01] MEDS ORDERED: HEPARIN 5000 UNIT/ML 1 ML VIAL SQ SCH (09:00)
[2022-01-01 12:36] VITALS: BP 155/82; TEMP 97.8
[2022-01-01] MEDS ORDERED: HYDRALAZINE HCL 20 MG/ML VIAL IV ONE (12:40)
--- NOTE | 2022-01-01 13:09 | EKG ---
Test Date: 2021-12-31 Test Time: 09:57:21 Cracker Off: FLORESITA MEASUREMENT RESULTS: Intervals: Rate: 65 VA: 152 QRSD: 84 QT: 438 QTc: 455 [place]: P: 33 VA: 152 QRS: 83 T: 10 INTERPRETIVE STATEMENTS: Normal sinus rhythm Possible Anterior infarct, age undetermined Abnormal ECG Compared to ECG 12/20/2019 12:04:40 Myocardial infarct finding now present Electronically Signed On 01-01-22 13:05:37 CDT by Delfino Mahajan
--- NOTE | 2022-01-01 14:36 | ECHO ---
HEIGHT: 5 ft 0 in WEIGHT: 142 lb 0 oz DATE OF STUDY: 01/01/[address]: Sidney Pedraza MD 2-DIMENSIONAL: YES M.MODE: YES DOPPLER: YES COLOR FLOW: YES TDS: PORTABLE: YES DEFINITY: BUBBLE STUDY: DIAGNOSIS: CONGESTIVE HEART FAILURE CARDIAC HISTORY: CATHERIZATION: SURGERY: PROSTHETIC VALVE: PACEMAKER: MEASUREMENTS (cm) DIASTOLIC (NORMALS) SYSTOLIC (NORMALS) IVSd 1.0 (0.6-1.2) LA Diam 3.9 (1.9-4.0) LVEF 56% LVIDd 4.6 (3.5-5.7) LVIDs 3.3 (2.0-3.5) %FS 29% LVPWd 1.0 (0.6-1.2) Ao Diam 2.6 (2.0-3.7) 2 DIMENSIONAL ASSESSMENT: RIGHT ATRIUM: NORMAL LEFT ATRIUM: NORMAL RIGHT VENTRICLE: NORMAL LEFT VENTRICLE: NORMAL TRICUSPID VALVE: MODERATE TRICUSPID REGURGITATION MITRAL VALVE: MILD MITRAL REGURGITATION PULMONIC VALVE: MILD PULMONIC INSUFFICIENCY AORTIC VALVE: NORMAL PERICARDIAL EFFUSION: SMALL AORTIC ROOT: NORMAL LEFT VENTRICULAR WALL MOTION: NORMAL DOPPLER/COLOR FLOW: SEE BELOW COMMENTS: NORMAL LEFT VENTRICULAR EJECTION FRACTION 55-60%. NORMAL WALL MOTION. MILD TRICUSPID REGURGITATION/ MITRAL REGURGITATION. BUBBLE STUDY IS NEGATIVE FOR INTRACARDIAC SHUNT. TECHNOLOGIST: PRICILA DAVIS
--- NOTE | 2022-01-01 14:57 | P.DS ---
Admission Date: 12/31/21 Discharge Date: 01/01/22 Disposition: ROUTINE DISCHARGE Discharge Condition: GOOD Reason for Admission: Hypervolemia in ESRD Consultations: 1. Nephrology Hospital Course: DIAGNOSES: # Suspect Acute on Chronic Decompensated Diastolic Congestive Heart Failure with Preserved Ejection Fraction superimposed on Hypervolemia in the setting of End- Stage Renal Disease not compliant with Hemodialysis # Suspect Anemia of Chronic Kidney Disease # Hypertension # Hyperlipidemia # Type II Diabetes Mellitus HOSPITAL COURSE: Ms. Garima Mcintosh is Singaporean-speaking only. The following history was obtained with the assistance of a Singaporean-[place] sign language interpreter. Ms. Garima Mcintosh is a pleasant 41 year old female with a past medical history significant for end-stage renal disease due to hypertensive and diabetic nephropathy, chronic diastolic congestive heart failure, type II diabetes mellitus, hypertension, and hyperlipidemia who was admitted to the [facility] on 12/31/2021 for lower extremity swelling. She was admitted to the Medicine service for a hypervolemia likely secondary to a possible mild CHF exacerbation as well as ESRD/nephrotic syndrome. Nephrology was consulted and she was treated with two sessions of hemodialysis while hospitalized. Over her hospital course, her symptoms improved significantly and she stated that she would like to be discharged home. I reviewed her case with Dr. García, who has cleared her to be discharged with an outpatient follow-up with Dr. Huffman. On 01/01/2022, she was seen on rounds and deemed medically stable for discharge. She was discharged with instructions to schedule follow-up appointments with her PCP (Dr. Wilkinson) in 3-5 days and with Nephrology (Dr. Huffman) in 3-5 days. She and her family members were given the opportunity to ask questions and reported no further questions. Furthermore, all questions were answered to the best of my ability. A copy of this discharge summary will be sent to the above providers to facilitate continuity of care. Today, I personally spent 20 minutes on her case, of which greater than 50% of t he time was spent in patient education, counseling, and coordination of care as described above. - Physical Exam General: Alert, In no apparent distress, Oriented x3 HEENT: Atraumatic, PERRLA, Mucous membr. moist/pink, EOMI, Sclerae nonicteric Neck: Supple, JVD distended (minimally) Respiratory: Normal air movement, Crackles/rales (faint bibasilar) Cardiovascular: Regular rate/rhythm, Normal S1 S2, No gallops, No rubs, No murmurs, Edema (1+ pitting) Gastrointestinal: Normal bowel sounds, Soft and benign, Non-distended, No tenderness, No rebound, No guarding Musculoskeletal: No clubbing Integumentary: No rashes Neurological: Normal strength at 5/5 x4 extr, Cranial nerves 3-12 intact, Normal affect Vital Signs/Physical Exam: Temp Pulse Resp BP Pulse Ox 97.8 F 76 16 155/82 H 100 01/01/22 12:00 01/01/22 12:00 01/01/22 12:00 01/01/22 12:00 01/01/22 12:00 Laboratory Data at Discharge: WBC 5.10 K/uL (4.3-10.9) 01/01/22 03:08 Hgb 8.3 g/dL (12.0-15.0) L 01/01/22 03:08 Hct 24.4 % (36.0-45.0) L 01/01/22 03:08 Plt Count 216 K/uL (152-406) 01/01/22 03:08 Sodium 137 mmol/L (136-145) 01/01/22 03:08 Potassium 3.8 mmol/L (3.5-5.1) D 01/01/22 03:08 BUN 52 mg/dL (7-18) H 01/01/22 03:08 Creatinine 4.94 mg/dL (0.55-1.3) H 01/01/22 03:08 Glucose 169 mg/dL (74-106) H 01/01/22 03:08 Phosphorus 4.7 mg/dL (2.5-4.9) 01/01/22 03:08 Magnesium 2.6 mg/dL (1.8-2.4) H 01/01/22 03:08 Home Medications: RX: Amlodipine Besylate 10 mg PO DAILY 12/31/21 RX: Bumetanide [Bumex*] 1 mg PO BID* 12/31/21 RX: Calcium Acetate 667 mg PO TID 12/31/21 RX: Insulin 70/30 NPH/Reg Human [Novolin 70/30*] 15 unit SQ BEDTIME 12/31/21 RX: Insulin 70/30 NPH/Reg Human [Novolin 70/30*] 30 unit SQ BREAKFAST 12/31/21 RX: calcitrioL [Rocaltrol] 1 cap PO DAILY 12/31/21 RX: Sevelamer Carbonate [Renvela*] 800 mg PO TIDWM 01/01/22 Physician Discharge Instructions: 1. Please schedule a follow-up appointment with your PCP (Dr. Gutiérrez) in 3-5 day s 2. Please schedule a follow-up appointment with your Power Ballast Machine Operator (Dr. Huffman) in 3-5 days Diet: Renal Activity: Ad anabella Followup: Carl Wilkinson MD [Primary Care Provider] - Duong Huffman DO [ACTIVE - CAN ADMIT] - Time spent managing pt's care (in minutes): 20
--- NOTE | 2022-01-01 14:59 | P.PN ---
Nephrology note: Please see my consultation note from within the past 90 days for further details, may be under a different MRN no as not all of her prior visits are showing up. Pt seen on HD today, HD being repeated today after session yesterday. BP remains elevated but pt denies dyspnea, reports improved peripheral edema. Vitals, imaging and labs reviewed in the EMR Gen: NAD Resp: b/l air entry CVS: RRR, Rt IJ TDC Abd: Soft, ND, NT Ext: Some 1+ distal edema b/l A/P) 1. ESRD 2nd to presumed diabetic nephropathy, initiated on HD earlier this summer but since pt is unfunded, an OP chair time for regular HD could not be arranged. Pt receiving intermittent HD via admission through ER. HD being repeated today 2. Accelerated HTN, hypertensive CKD V/ESRD -f/u post HD BP, cont home meds, dosed Hydralazine 10 mg x 1 IV earlier. 3. Chronic peripheral edema in the setting of nephrotic syndrome, other -cont diuretics as pt is non oliguric 4. Anemia 2nd to CKD, inflammation -no transfusions needed currently, cont PO iron, hold ABDULAZIZ while hypertensive Ok to discharge post HD if BP stable, pt will f/u as an OP with Dr. Huffman in clinic. Dewey García MD, MARYJANE
--- NOTE | 2022-01-02 15:39 | CON ---
Date of Consultation: 01/01/[address] Pedraza on 12/31/2021 with congestive heart failure. I saw the patient on 01/01/2022. History Of Present Illness: Ms. Salazar is a 41-year-old woman, who has end-stage renal disease. She is not on hemodialysis, although her creatinine was 8.82. She came in anemic, glucose of 140. H er systolic blood pressure was elevated. Chest x-ray showed edema. Echocardiogram in 2019 showed di astolic dysfunction, normal ejection fraction. Comes in with PND, orthopnea, pedal edema, shortness of breath. No chest pain, nausea, vomiting, diaphoresis. Denied any palpitation or syncope. Denied any fever or chills. Past Medical History: Includes hypertension, diabetes, chronic renal disease, and dyslipidemia. Allergies: NONE. Review of Systems: Negative. Social History: Negative. Family History: Negative. Medications: At home supposed to be Bumex, insulin, and Norvasc. Physical Examination: Vital Signs: Showed a systolic blood pressure 178, sinus rhythm, afebrile. HEENT: Negative. Neck: Supple with no bruit. Chest: Revealed rales both bases. Cardiac: Revealed a regular rhythm and rate with S4 gallops. No murmurs or rubs. Abdomen: Obese, but benign. Extremities: Revealed no clubbing, cyanosis. She had 1+ edema. Diagnostic Data: As stated earlier. Impression And Plan: 1.Acute on chronic diastolic congestive heart failure. 2.Renal failure. 3.Anemia. 4.Diabetes. 5.Hypertension, poorly controlled. 6.Dyslipidemia. Ms. Salazar really needs an extensive cardiac workup including echocardiogram. S he should have an outpatient stress test eventually with an MPI. I think she needs to have dialysis, but I will leave that up to Nephrology to decide. I will discuss the case further with Dr. Pedraza. For now, continue present regimen, obtain an echocardiogram, and we will continue to follow. RENÉ/ISABEL Voice ID: [id number] Report ID: [id number]
[2022-01-02 21:08] VITALS: O2SAT 100
== END 2022-01-01 15:49 | disposition home or self-care (01) ==
LOC: ER 09:16 → ERHOLD 12:31 → 4TH 13:54
PROVIDERS: ADMIT Internal Medicine; ATTEND Internal Medicine
PROC: 5A1D70Z Performance of Urinary Filtration, Intermittent, Less than 6 Hours Per Day (ICD-10-PCS; principal; 2021-12-31)
PROC: 5A1D70Z Performance of Urinary Filtration, Intermittent, Less than 6 Hours Per Day (ICD-10-PCS; 2022-01-01)
DX: I50.33 Acute on chronic diastolic (congestive) heart failure (principal); E87.70 Fluid overload, unspecified; I13.2 Hypertensive heart and chronic kidney disease with heart failure and with stage 5 chronic kidney disease, or end stage renal disease; E11.22 Type 2 diabetes mellitus with diabetic chronic kidney disease; E11.21 Type 2 diabetes mellitus with diabetic nephropathy; N18.6 End stage renal disease; E78.5 Hyperlipidemia, unspecified; Z99.2 Dependence on renal dialysis; Z91.15 Patient's noncompliance with renal dialysis; Z79.4 Long term (current) use of insulin
CPT/HCPCS: 36415; 71046; 80048; 82947; 83735; 84100; 84484; 85025; 87811; 90935; 93005; 93306; 99285; G0378; J1644; J1815; J2150; Q5106